=== PATIENT | male | born 1975 | race Caucasian/White ===

== ENCOUNTER 2017-07-27 10:55 | Emergency (ER) | payer OTHER ==
--- OUTSIDE RECORDS SUMMARY | 2017-07-27 10:57 | XMS REPORT ---
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
--- OUTSIDE RECORDS SUMMARY | 2017-07-27 10:57 | XMS REPORT ---
:1975 Author Organization [employer] Care Team Providers Name Role Phone Arsalan Tran Provider Role Unavailable Allergies, Adverse Reactions, Alerts Substance Reaction Event Type N.K.D.A. 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) Problem Tobacco use disorder F17.200 Active Problem Osteoarthritis of multiple joints M15.9 Active Assessment Condyloma acuminata A63.0 Active Assessment Migraine without aura and without G43.009 Active status migrainosus, not intractable Assessment Tobacco use disorder F17.200 Active Medications Medication Code System Code Instructions Start End Date Status Dosage Date Ibuprofen ND 25175406037 400 MG Orally Active 1 tablet Three times a day with food or milk as needed Remus [facility] 83281509124 5-325 MG Orally Active 1 tablet every 6 hrs as needed Results No Known Results Summary Purpose [employer] Submission
[2017-07-27] MEDS ORDERED: TETRACAINE HCL 0.5% 2ML OPTH ONE (13:14)
[2017-07-27 14:21] LABS: Absolute Monocytes 0.8 K/uL (0.1-1.3); Absolute Neutrophil 4.3 K/uL (1.8-8.0); Basophils % 0.6 % (0-1.3); Eosinophils % 1.8 % (0-4.4); Hematocrit 45.9 % (39.6-49.0); Lymphocytes % 27.9 % (15.3-44.8); MCH 28.9 pg (27.0-35.0); MCV 85.6 fL (80-100); MPV 11.8 fL (7.6-11.3); Monocytes % 10.4 % (3.3-12.3); RBC Red Blood Cell Count 5.37 M/uL (4.33-5.43)
[2017-07-27 14:28] LABS: Bicarbonate 31 mEq/L (21-31); Glucose Level 96 mg/dL (65-120); Lipase 32 U/L (22-51); Potassium 4.3 mEq/L (3.6-5.0); Sodium Level 137 mEq/L (135-145)
[2017-07-27 14:34] LABS: ALT/SGPT 19 IU/L (10-60); AST/SGOT 26 IU/L (10-42); Albumin 3.8 g/dL (3.2-5.5); Alkaline Phosphatase 79 IU/L (42-121); BUN Blood Urea Nitrogen 11 mg/dL (6-20); Bilirubin Direct 0.1 mg/dL (0-0.2); Bilirubin Total 0.6 mg/dL (0.3-1.2)
[2017-07-27 14:56] LABS: Blood Morphology Comment NOT SEEN (NOT SEEN); Platelet Estimate DECR; Urine White Blood Cell Casts OK
[2017-07-27] MEDS ORDERED: ONDANSETRON 4 MG (ODT) TAB ONE (16:31)
[2017-07-27] MEDS ORDERED: HYDROCODONE/APAP 5/325 MG TAB ONE ×2 (16:31→20:29)
--- NOTE | 2017-07-27 16:50 | RAD REPORT ---
EXAM DESCRIPTION: CT - Head Brain Wo Cont - 07/27/2017 4:32 pm CLINICAL HISTORY: Headache COMPARISON: December 2016 TECHNIQUE: Computed axial tomography of the head was obtained. IV contrast was not requested. All CT scans are performed using dose optimization technique as appropriate and may include automated exposure control or mA/KV adjustment according to patient size. FINDINGS: An intracranial bleed is not seen . The ventricles are normal in caliber. No extra-axial fluid collection is noted. Moderate mucoperiosteal thickening of the ethmoid sinus is present IMPRESSION: No acute intracranial abnormality is seen. If patient's symptoms persist MRI of the bra in would be recommended. Moderate chronic ethmoid sinusitis
--- NOTE | 2017-07-27 17:47 | EDPHYS ---
Physician Documentation [facility] Name: Vikas Flores Age: 41 yrs Sex: Male : 1975 Arrival Date: 07/27/2017 Time: 10:58 Bed 7 Private MD: Julian Tracy ED Physician Romulo Vuong HPI: 07/27 17:16 This 41 yrs old Male presents to ER via Ambulatory with complaints of gs Vomiting, Dizziness. 17:16 Onset: The symptoms/episode began/occurred gradually, 3 day(s) ago. Possible causes: gs thinks its his itp. The symptoms are aggravated by nothing. The symptoms are alleviated by nothing. 17:32 Associated signs and symptoms: Pertinent negatives: fever. Severity of symptoms: At gs their worst the symptoms were moderate in the emergency department the symptoms are unchanged. The patient has experienced similar episodes in the past, a few times. Historical: - Allergies: 11:15 No Known Allergies; sv - Home Meds: 11:15 None [Active]; sv - PMHx: 11:15 ITP; sv - PSHx: 11:15 rhinoplasty; Tonsillectomy; Adenoids; Appendectomy; sv - Immunization history:: Adult Immunizations up to date. - Social history:: Smoking status: Patient uses tobacco products, smokes one pack cigarettes per day. - Ebola Screening: : No symptoms or risks identified at this time. ROS: 17:32 Eyes: Positive for foreign body sensation, started 3 days ago, Negative for redness, gs swelling, vision loss. 17:32 All other systems are negative. Exam: 17:32 Head/Face: Normocephalic, atraumatic. ENT: Nares patent. No nasal discharge, no gs septal abnormalities noted. Tympanic membranes are normal and external auditory canals are clear. Oropharynx with no redness, swelling, or masses, exudates, or evidence of obstruction, uvula midline. Mucous membranes moist. Neck: Trachea midline, no thyromegaly or masses palpated, and no cervical lymphadenopathy. Supple, full range of motion without nuchal rigidity, or vertebral point tenderness. No Meningismus. Chest/axilla: Normal chest wall appearance and motion. Nontender with no deformity. No lesions are appreciated. Cardiovascular: Regular rate and rhythm with a normal S1 and S2. No gallops, murmurs, or rubs. Normal PMI, no JVD. No pulse deficits. Respiratory: Lungs have equal breath sounds bilaterally, clear to auscultation and percussion. No rales, rhonchi or wheezes noted. No increased work of breathing, no retractions or nasal flaring. Back: No spinal tenderness. No costovertebral tenderness. Full range of motion. Skin: Warm, dry with normal turgor. Normal color with no rashes, no lesions, and no evidence of cellulitis. MS/ Extremity: Pulses equal, no cyanosis. Neurovascular intact. Full, normal range of motion. Neuro: Awake and alert, GCS 15, oriented to person, place, time, and situation. Cranial nerves II-XII grossly intact. Motor strength 5/5 in all extremities. Sensory grossly intact. Cerebellar exam normal. Normal gait. 17:32 Constitutional: The patient appears alert, awake. 17:32 Eyes: Conjunctiva: normal, Corneas: foreign body, on the right, at 9 o'clock, a piece of metal. 17:32 Skin: no rash present. Vital Signs: 11:15 BP 120 / 82; Pulse 63; Resp 18; Temp 97.7; Pulse Ox 97% ; Weight 81.65 kg; Height 5 ft. sv 11 in. (180.34 cm); Pain 5/10; 19:48 BP 121 / 78; Pulse 73; Resp 18; Pulse Ox 98% on R/A; tl2 11:15 Body Mass Index 25.10 (81.65 kg, 180.34 cm) sv Procedures: 17:32 Foreign Body Removal: a piece of metal, from the right eye, cornea without use of slit gs lamp by needle, The patient tolerated the removal well, only partial removal. MDM: 13:03 Patient medically screened. 17:32 Data reviewed: vital signs, nurses notes. ED course: transfer after dr jhaveri and andrea want transferred. 07/27 13:10 Order name: Basic Metabolic Panel; Complete Time: 14:40 07/27 13:10 Order name: CBC with Diff; Complete Time: 15:01 07/27 13:10 Order name: Hepatic Function; Complete Time: 14:40 07/27 13:10 Order name: Lipase; Complete Time: 14:40 07/27 14:54 Order name: CBC Smear Scan; Complete Time: 15:01 EDKY 07/27 16:22 Order name: CT Head Brain wo Cont; Complete Time: 17:01 07/27 13:10 Order name: IV Saline Lock; Complete Time: 14:03 07/27 13:10 Order name: Labs collected and sent; Complete Time: 14:03 Administered Medications: 13:30 Drug: Tetracaine Drops 0.5 % 1 drops {Note: medication administered by } Route: Ophthalmic; Site: right eye; 16:30 Drug: Zofran 4 mg Route: PO; sg 21:06 Follow up: Response: No adverse reaction; Nausea is decreased tl2 16:30 Drug: Mathias 5 mg-325 mg 1 tabs Route: PO; sg 20:29 Drug: Mathias 5 mg-325 mg 1 tabs Route: PO; tl2 21:06 Follow up: Response: No adverse reaction; Medication administered at discharge. tl2 Disposition: 07/27/17 17:46 Transfer ordered to [facility]. Diagnosis is Immune thrombocytopenic purpura. - Reason for transfer: Higher level of care. - Accepting physician is steve. - Condition is Stable. - Problem is an acute exacerbation. - Symptoms are unchanged. Signatures: Dispatcher [employer] [facility] Shweta Alvarado RN RN Mike Oneil RN RN Anca López RN RN 2 Romulo Vuong MD MD Corrections: (The following items were deleted from the chart) 21:07 17:46 07/27/2017 17:46 Transfer ordered to [facility]. tl2 Diagnosis is Immune thrombocytopenic purpura. Reason for transfer: Higher level of care. Accepting physician is steve. Condition is Stable. Problem is an acute exacerbation. Symptoms are unchanged.
--- NOTE | 2017-07-27 17:47 | ER ---
Nurse's Notes [facility] Name: Vikas Flores Age: 41 yrs Sex: Male : 1975 Arrival Date: 07/27/2017 Time: 10:58 Bed 7 Private MD: Julian Tracy Diagnosis: Immune thrombocytopenic purpura Presentation: 07/27 11:14 Presenting complaint: Patient states: FB in left eye, vomiting and dizziness started sv Saturday, "I think it's my ITP messing with me.". Transition of care: patient was not received from another setting of care. Onset of symptoms was July 23, 2017. Care prior to arrival: None. 11:14 Method Of Arrival: Ambulatory sv 11:14 Acuity: FAUSTO 3 sv 21:05 Risk Assessment: Do you want to hurt yourself or someone else? Patient reports no tl2 desire to harm self or others. Initial Sepsis Screen: Does the patient meet any 2 criteria? No. Patient's initial sepsis screen is negative. Does the patient have a suspected source of infection? No. Patient's initial sepsis screen is negative. Historical: - Allergies: 11:15 No Known Allergies; sv - Home Meds: 11:15 None [Active]; sv - PMHx: 11:15 ITP; sv - PSHx: 11:15 rhinoplasty; Tonsillectomy; Adenoids; Appendectomy; sv - Immunization history:: Adult Immunizations up to date. - Social history:: Smoking status: Patient uses tobacco products, smokes one pack cigarettes per day. - Ebola Screening: : No symptoms or risks identified at this time. Screenin:50 Abuse screen: Denies threats or abuse. Denies injuries from another. Nutritional sg screening: No deficits noted. Tuberculosis screening: No symptoms or risk factors identified. Never had TB. Fall Risk None identified. Assessment: 12:10 General: Appears in no apparent distress. comfortable, well groomed, well developed, sg well nourished, Behavior is calm, cooperative, appropriate for age. Pain: Denies pain. Neuro: Level of Consciousness is awake, alert, obeys commands, Oriented to person, place, time, situation, Automobile Mechanic Motor are equal bilaterally Moves all extremities. Full function Gait is steady, Speech is normal, Facial symmetry appears normal, Reports dizziness, weakness. Cardiovascular: No deficits noted. Reports fatigue, lightheadedness, nausea, vomiting, Denies chest pain, shortness of breath, vomiting, Heart tones S1 S2 present Capillary refill is brisk in bilateral fingers Patient's skin is warm and dry. Chest pain is denied. Respiratory: No deficits noted. GI: Abdomen is flat, non-distended, Bowel sounds present X 4 quads. : No signs and/or symptoms were reported regarding the genitourinary system. EENT: Eyes are tearing on left eye a dark colored pinpoint sized kayla is noted on the sclera . Sclera/Cornea are reddened in left eye Reports pain in left eye. Derm: Skin is pink, warm \\T\\ dry. Musculoskeletal: No signs and/or symptoms reported regarding the musculoskeletal system. 19:40 Reassessment: attempted to call report, instructed to call back in 10 minutes. tl2 20:25 Reassessment: pt c/o pain, Dr. Parekh VO for another dose of [place] 5. Awaiting tl2 transport. 21:04 Reassessment: Patient appears in no apparent distress at this time. Patient and/or tl2 family updated on plan of care and expected duration. Pain level reassessed. Patient is alert, oriented x 3, equal unlabored respirations, skin warm/dry/pink. Pt stable and ready for transport. Vital Signs: 11:15 BP 120 / 82; Pulse 63; Resp 18; Temp 97.7; Pulse Ox 97% ; Weight 81.65 kg; Height 5 ft. sv 11 in. (180.34 cm); Pain 5/10; 19:48 BP 121 / 78; Pulse 73; Resp 18; Pulse Ox 98% on R/A; tl2 11:15 Body Mass Index 25.10 (81.65 kg, 180.34 cm) sv ED Course: 10:58 Patient arrived in ED. sb2 10:59 Julian Tracy MD is Private Physician. sb2 11:15 Triage completed. sv 11:16 Arm band placed on right wrist. Patient placed in waiting room, Patient notified of sv wait time. 11:45 Romulo Vuong MD is Attending Physician. gs 11:48 Mike Oneil, SANTOSH is Primary Nurse. sg 13:50 Initial lab(s) drawn, by me, sent to lab. Inserted saline lock: 20 gauge in right sg antecubital area, using aseptic technique. Blood collected. 16:14 transfer approval from receiving facility. sg 16:31 CT Head Brain wo Cont In Process Unspecified. EDMS 16:31 CT completed. Patient moved to HI via wheelchair. Patient moved back from HI. cw1 21:04 Anca López, RN is Primary Nurse. tl2 21:04 Patient has correct armband on for positive identification. Bed in low position. Call tl2 light in reach. Side rails up X 1. 21:04 No provider procedures requiring assistance completed. Patient transferred, IV remains tl2 in place. Administered Medications: 13:30 Drug: Tetracaine Drops 0.5 % 1 drops {Note: medication administered by .} Route: Ophthalmic; Site: right eye; 16:30 Drug: Zofran 4 mg Route: PO; sg 21:06 Follow up: Response: No adverse reaction; Nausea is decreased tl2 16:30 Drug: [place] 5 mg-325 mg 1 tabs Route: PO; sg 20:29 Drug: [place] 5 mg-325 mg 1 tabs Route: PO; tl2 21:06 Follow up: Response: No adverse reaction; Medication administered at discharge. tl2 Outcome: 17:46 ER care complete, transfer ordered by . 21:04 Transferred by ground EMS to [facility], Transfer form completed. tl2 21:04 Condition: stable 21:04 Discharge instructions given to patient, family, Instructed on the need for transfer. 21:07 Patient left the ED. tl2 Signatures: Dispatcher [employer] [facility] Shweta Alvarado RN RN sv Gay, Steven, RN RN sg Woodley, Crystal cw1 Anca López RN RN tl2 Romulo Vuong MD MD Sima Brambila sb2 Corrections: (The following items were deleted from the chart) 19:17 12:10 EENT: No signs and/or symptoms were reported regarding the EENT system. sg sg
[2017-07-27 21:14] VITALS: TEMP 97.7
[2017-07-27 21:15] VITALS: BP 121/78; O2SAT 98
== END 2017-07-27 21:07 | disposition short-term general hospital (02) ==
LOC: ER 10:55
PROC: 08C8XZZ Extirpation of Matter from Right Cornea, External Approach (ICD-10-PCS; principal; 2017-07-27)
DX: D69.3 Immune thrombocytopenic purpura (principal); T15.01XA Foreign body in cornea, right eye, initial encounter; F17.210 Nicotine dependence, cigarettes, uncomplicated
CPT/HCPCS: 36415; 70450; 80048; 80076; 83690; 85025; 99285

== ENCOUNTER 2018-11-07 12:08 | Emergency (ER) | payer OTHER ==
[2018-11-07 12:53] LABS: Absolute Lymphocytes (CBC) 2.9 K/uL (0.7-4.9); Basophils % 0.7 % (0-1.3); Hematocrit 46.7 % (39.6-49.0); Lymphocytes % 30.7 % (15.3-44.8); MPV 10.9 fL (7.6-11.3); RBC Red Blood Cell Count 5.44 M/uL (4.33-5.43)
[2018-11-07] MEDS ORDERED: NA CHLORIDE 0.9% 250 ML ONE (14:04)
[2018-11-07] MEDS ORDERED: ONDANSETRON 4 MG/2 ML VIAL ONE (15:35)
[2018-11-07] MEDS ORDERED: ACETAMINOPHEN 500 MG TAB ONE (15:39)
--- NOTE | 2018-11-07 16:35 | ER ---
Nurse's Notes [facility] Name: Vikas Flores Age: 43 yrs Sex: Male : 1975 Arrival Date: 11/07/2018 Time: 12:11 Bed 24 Private MD: Diagnosis: ITP Presentation: 11/07 12:12 Presenting complaint: Patient states: His doctor told him that his platelet count was aj1 low and he needed to come in for a transfusion. Transition of care: patient was not received from another setting of care. Onset of symptoms was November 07, 2018. Risk Assessment: Do you want to hurt yourself or someone else? Patient reports no desire to harm self or others. Initial Sepsis Screen: Does the patient meet any 2 criteria? No. Patient's initial sepsis screen is negative. Does the patient have a suspected source of infection? No. Patient's initial sepsis screen is negative. Care prior to arrival: None. 12:12 Method Of Arrival: Ambulatory aj1 12:12 Acuity: FAUSTO 3 aj1 Triage Assessment: 12:13 General: Appears in no apparent distress. comfortable, Behavior is calm, cooperative, aj1 appropriate for age. Pain: Denies pain. Historical: - Allergies: 12:13 No Known Allergies; aj1 - Home Meds: 12:13 None [Active]; aj1 - PMHx: 12:13 ITP; aj1 - PSHx: 12:13 Appendectomy; aj1 - Immunization history:: Flu vaccine is not up to date. - Social history:: Smoking status: Patient uses tobacco products, smokes two packs cigarettes per day. - Ebola Screening: : Patient denies travel to an Ebola-affected area in the 21 days before illness onset. Screenin:22 Abuse screen: Denies threats or abuse. Denies injuries from another. Nutritional mg2 screening: No deficits noted. Tuberculosis screening: No symptoms or risk factors identified. Fall Risk IV access (20 points). Assessment: 12:22 General: Appears in no apparent distress. comfortable, Behavior is calm, cooperative. mg2 Pain: Complains of pain in chest and abdomen Pain does not radiate. Pain currently is 2 out of 10 on a pain scale. Quality of pain is described as aching, Pain began gradually, Is intermittent, chronic. Neuro: Level of Consciousness is awake, alert, obeys commands, Oriented to person, place, time, situation. Cardiovascular: Capillary refill < 3 seconds Patient's skin is warm and dry. Respiratory: Airway is patent Respiratory effort is even, unlabored, Respiratory pattern is regular, symmetrical. GI: Reports lower abdominal pain, upper abdominal pain. : No signs and/or symptoms were reported regarding the genitourinary system. EENT: Reports. Derm: Skin is intact, is healthy with good turgor, Skin is pink, warm \T\ dry. normal. Musculoskeletal: Circulation, motion, and sensation intact. Capillary refill < 3 seconds. 13:39 Reassessment: provider spoke to the patient about the need for platelet transfusion. mg2 patient agreed. type and screen sent to the lab. 15:38 Reassessment: patient complained of n/v during the first 10 min of transfusion. mg2 transfusion stopped. ns started. zofran given as opal provider's order. patient monitored closely. provider ordered to just continue giving the platelet. 16:55 Reassessment: Patient appears in no apparent distress at this time. Patient and/or mg2 family updated on plan of care and expected duration. Pain level reassessed. Patient is alert, oriented x 3, equal unlabored respirations, skin warm/dry/pink. Vital Signs: 12:13 BP 121 / 75; Pulse 71; Resp 18; Temp 98.2; Pulse Ox 97% on R/A; Weight 81.65 kg (R); aj1 Height 5 ft. 10 in. (177.80 cm) (R); Pain 0/10; 13:30 BP 110 / 89; Pulse 69; Resp 18; Temp 98.4; Pulse Ox 100% on R/A; mg2 14:30 BP 112 / 70; Pulse 71; Resp 18; Pulse Ox 100% ; mg2 15:40 BP 118 / 92; Pulse 71; Resp 18; Pulse Ox 100% on R/A; mg2 16:20 BP 102 / 71; Pulse 70; Resp 18; Temp 98; Pulse Ox 100% on R/A; mg2 12:13 Body Mass Index 25.83 (81.65 kg, 177.80 cm) aj ED Course: 12:11 Patient arrived in ED. mr 12:13 Triage completed. aj1 12:13 Arm band placed on Patient placed in an exam room. aj1 12:16 Chandan Jovel, RN is Primary Nurse. mg2 12:18 Juan Ramon Arredondo PA is PHCP. jr8 12:18 Tres Deutsch MD is Attending Physician. jr8 12:23 Patient has correct armband on for positive identification. ekg monitor tech on. Pulse mg2 ox on. NIBP on. Door closed. Warm blanket given. 12:30 No provider procedures requiring assistance completed. Inserted saline lock: 20 gauge mg2 in right antecubital area, using aseptic technique. Blood collected. 16:58 IV discontinued, intact, bleeding controlled, No redness/swelling at site. Pressure mg2 dressing applied. Administered Medications: 15:47 Drug: Zofran 4 mg Route: IVP; Site: right antecubital; mg2 17:00 Follow up: Response: No adverse reaction; Marked relief of symptoms mg2 15:47 Drug: Tylenol 1000 mg Route: PO; mg2 17:00 Follow up: Response: No adverse reaction; Marked relief of symptoms mg2 Medication: 16:58 Blood products: Platelets X 1 unit given. blood unit number- [id number] See mg2 transfusion record. Outcome: 16:34 Discharge ordered by . jr8 16:59 Discharged to home ambulatory. mg2 16:59 Condition: good 16:59 Discharge instructions given to patient, Instructed on discharge instructions, follow up and referral plans. Demonstrated understanding of instructions, follow-up care. 17:00 Patient left the ED. mg2 Signatures: Lu Treadwell, RN RN aj1 Kiara Snyder mr Juan Ramon Arredondo PA PA jr8 Chandan Jovel RN RN mg2 Corrections: (The following items were deleted from the chart) 16:55 15:38 Reassessment: patient complained of n/v during the first 10 min of transfusion. mg2 transfusion stopped. ns started. zofran given as opal provider's order. patient monitored closely. mg2
--- NOTE | 2018-11-07 16:35 | EDPHYS ---
Physician Documentation [facility] Name: Vikas Flores Age: 43 yrs Sex: Male : 1975 Arrival Date: 11/07/2018 Time: 12:11 Bed 24 Private MD: ED Physician Tres Deutsch HPI: 11/07 12:31 This 43 yrs old Male presents to ER via Ambulatory with complaints of jr8 Abnormal Lab Results. 12:31 Onset: The symptoms/episode began/occurred today. The patient has experienced similar jr8 episodes in the past. The patient has been recently seen by a physician: Dr. deng. 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 Sent to ER for steroids, pt denies any new onset pain or bleeding. Historical: - Allergies: 12:13 No Known Allergies; aj1 - Home Meds: 12:13 None [Active]; aj1 - PMHx: 12:13 ITP; aj1 - PSHx: 12:13 Appendectomy; aj1 - Immunization history:: Flu vaccine is not up to date. - Social history:: Smoking status: Patient uses tobacco products, smokes two packs cigarettes per day. - Ebola Screening: : Patient denies travel to an Ebola-affected area in the 21 days before illness onset. ROS: 12:31 Constitutional: Negative for fever, chills, and weight loss, Eyes: Negative for injury, jr8 pain, redness, and discharge, ENT: Negative for injury, pain, and discharge, Neck: Negative for injury, pain, and swelling, Cardiovascular: Negative for chest pain, palpitations, and edema, Respiratory: Negative for shortness of breath, cough, wheezing, and pleuritic chest pain, Abdomen/GI: Negative for abdominal pain, nausea, vomiting, diarrhea, and constipation, MS/Extremity: Negative for injury and deformity, Neuro: Negative for headache, weakness, numbness, tingling, and seizure. Exam: 12:31 Constitutional: This is a well developed, well nourished patient who is awake, alert, jr8 and in no acute distress. Head/Face: Normocephalic, atraumatic. Eyes: Pupils equal round and reactive to light, extra-ocular motions intact. Lids and lashes normal. Conjunctiva and sclera are non-icteric and not injected. Cornea within normal limits. Periorbital areas with no swelling, redness, or edema. ENT: Nares patent. No nasal discharge, no septal abnormalities noted. Tympanic membranes are normal and external auditory canals are clear. Oropharynx with no redness, swelling, or masses, exudates, or evidence of obstruction, uvula midline. Mucous membranes moist. Neck: Trachea midline, no thyromegaly or masses palpated, and no cervical lymphadenopathy. Supple, full range of motion without nuchal rigidity, or vertebral point tenderness. No Meningismus. Chest/axilla: Normal chest wall appearance and motion. Nontender with no deformity. No lesions are appreciated. Cardiovascular: Regular rate and rhythm with a normal S1 and S2. No gallops, murmurs, or rubs. Normal PMI, no JVD. No pulse deficits. Respiratory: Lungs have equal breath sounds bilaterally, clear to auscultation and percussion. No rales, rhonchi or wheezes noted. No increased work of breathing, no retractions or nasal flaring. Abdomen/GI: Soft, non-tender, with normal bowel sounds. No distension or tympany. No guarding or rebound. No evidence of tenderness throughout. Back: No spinal tenderness. No costovertebral tenderness. Full range of motion. Skin: Warm, dry with normal turgor. Normal color with no rashes, no lesions, and no evidence of cellulitis. Neuro: Awake and alert, GCS 15, oriented to person, place, time, and situation. Cranial nerves II-XII grossly intact. Motor strength 5/5 in all extremities. Sensory grossly intact. Cerebellar exam normal. Normal gait. Vital Signs: 12:13 BP 121 / 75; Pulse 71; Resp 18; Temp 98.2; Pulse Ox 97% on R/A; Weight 81.65 kg (R); aj1 Height 5 ft. 10 in. (177.80 cm) (R); Pain 0/10; 13:30 BP 110 / 89; Pulse 69; Resp 18; Temp 98.4; Pulse Ox 100% on R/A; mg2 14:30 BP 112 / 70; Pulse 71; Resp 18; Pulse Ox 100% ; mg2 15:40 BP 118 / 92; Pulse 71; Resp 18; Pulse Ox 100% on R/A; mg2 16:20 BP 102 / 71; Pulse 70; Resp 18; Temp 98; Pulse Ox 100% on R/A; mg2 12:13 Body Mass Index 25.83 (81.65 kg, 177.80 cm) aj1 MDM: 12:41 Patient medically screened. jr8 16:29 Data reviewed: vital signs, nurses notes, lab test result(s), and as a result, I will jr8 discharge patient. Data interpreted: Pulse oximetry: on room air is 100 %. Interpretation: normal. Counseling: I had a detailed discussion with the patient and/or guardian regarding: the historical points, exam findings, and any diagnostic results supporting the discharge/admit diagnosis, lab results, the need for outpatient follow up, oncology, to return to the emergency department if symptoms worsen or persist or if there are any questions or concerns that arise at home. ED course: Spoke with Dr. Deng who wants patient to have 1 unit of platelets and then to be discharged home. Patient good with this plan. 11/07 12:28 Order name: CBC with Diff; Complete Time: 13:23 eb 11/07 13:27 Order name: TS [facility] 11/07 13:39 Order name: Platelets, Leukored Pheresis EDAK 11/07 15:06 Order name: ABO/RH no charge; Complete Time: 15:59 EDMS Administered Medications: 15:47 Drug: Zofran 4 mg Route: IVP; Site: right antecubital; mg2 17:00 Follow up: Response: No adverse reaction; Marked relief of symptoms mg2 15:47 Drug: Tylenol 1000 mg Route: PO; mg2 17:00 Follow up: Response: No adverse reaction; Marked relief of symptoms mg2 Disposition: 18:32 Co-signature as Attending Physician, Tres Deutsch MD. rn Disposition: 11/07/18 16:34 Discharged to Home. Impression: ITP. - Condition is Stable. - Discharge Instructions: Platelet Transfusion, Platelet Transfusion, Care After. - Medication Reconciliation Form, Thank You Letter form. - Follow up: Private Physician; When: 2 - 3 days; Reason: Recheck today's complaints, Continuance of care, Re-evaluation by your physician. - Problem is chronic. - Symptoms are unchanged. Signatures: Dispatcher [facility] Lu Treadwell RN RN aj1 Tres Deutsch MD MD rn Roszak, Josh, PA PA jr8 Gardose, Chandan, RN RN mg2 Corrections: (The following items were deleted from the chart) 13:30 13:28 TYPE AND SCREEN+BB.LAB.BRZ ordered. EDAK EDMS 13:30 13:28 ABO/RH TYPING+BB.LAB.BRZ ordered. EDAK EDAK 17:00 16:34 11/07/2018 16:34 Discharged to Home. Impression: ITP. Condition is Stable. Forms mg2 are Medication Reconciliation Form, Thank You Letter, Antibiotic Education, Prescription Opioid Use. Follow up: Private Physician; When: 2 - 3 days; Reason: Recheck today's complaints, Continuance of care, Re-evaluation by your physician. Problem is chronic. Symptoms are unchanged. jr8
== END 2018-11-07 17:00 | disposition home or self-care (01) ==
LOC: ER 12:08
PROC: 30233R1 Transfusion of Nonautologous Platelets into Peripheral Vein, Percutaneous Approach (ICD-10-PCS; principal; 2018-11-07)
DX: D69.3 Immune thrombocytopenic purpura (principal); F17.210 Nicotine dependence, cigarettes, uncomplicated
CPT/HCPCS: 85025; 36415; 86900; 86850; 86901; 36430 ×2; 96374; 99285; P9035; J2405

== ENCOUNTER 2018-12-24 09:44 | Day surgery (SDC) | payer OTHER ==
--- OUTSIDE RECORDS SUMMARY | 2018-12-24 09:47 | XMS REPORT ---
[...] Medications Results No Known Results Summary Purpose [employer] Submission
--- OUTSIDE RECORDS SUMMARY | 2018-12-24 09:47 | XMS REPORT ---
[...] End Date Status Dosage Date Ibuprofen ND [id number] 400 MG Orally Active 1 tablet Three times a day with food or milk as needed [employer] [facility] [id number] 5-325 MG Orally Active 1 tablet every 6 hrs as needed Results No Known Results Summary Purpose [employer] Submission
[2018-12-24] MEDS ORDERED: NA CHLORIDE 0.9% 500 ML ONE (10:12)
[2018-12-24 10:42] VITALS: BP 110/74; TEMP 98.4; O2SAT 94
[2018-12-24 10:45] VITALS: BMI 25.8
[2018-12-24 12:26] LABS: MPV 9.9 fL (7.6-11.3)
[2018-12-24 13:00] LABS: Platelet Estimate DECR
== END 2018-12-24 12:12 | disposition home or self-care (01) ==
LOC: DS 09:44
PROVIDERS: ATTEND Internal Medicine Medical Oncology
DX: D69.3 Immune thrombocytopenic purpura (principal)
CPT/HCPCS: 36415; 86900; 86850; 85049; 86901; 36430; P9035; J7040

== ENCOUNTER 2018-12-24 18:46 | Inpatient (IN) | payer OTHER ==
--- OUTSIDE RECORDS SUMMARY | 2018-12-24 18:47 | XMS REPORT ---
[...] Medications Results No Known Results Summary Purpose [employer] Submission
--- OUTSIDE RECORDS SUMMARY | 2018-12-24 18:47 | XMS REPORT ---
[...] End Date Status Dosage Date Ibuprofen ND [id number] 400 MG Orally Active 1 tablet Three times a day with food or milk as needed [employer] [facility] [id number] 5-325 MG Orally Active 1 tablet every 6 hrs as needed Results No Known Results Summary Purpose [employer] Submission
[2018-12-24] MEDS ORDERED: PANTOPRAZOLE 40 MG INJ ONE (21:12)
[2018-12-24] MEDS ORDERED: NA CHLORIDE 0.9% 1,000 ML ONE (21:12)
[2018-12-24 21:41] LABS: Absolute Lymphocytes (CBC) 2.1 K/uL (0.7-4.9); Basophils % 0.3 % (0-1.3); Hematocrit 46.1 % (39.6-49.0); Lymphocytes % 7.2 % (15.3-44.8); MPV 11.4 fL (7.6-11.3); RBC Red Blood Cell Count 5.27 M/uL (4.33-5.43)
[2018-12-24 21:50] LABS: Protime INR 1.06
[2018-12-24 21:52] LABS: ALT/SGPT 26 U/L (12-78); AST/SGOT 21 U/L (15-37); Albumin 3.8 g/dL (3.4-5.0); Alkaline Phosphatase 105 U/L (45-117); BUN Blood Urea Nitrogen 16 mg/dL (7-18); Bicarbonate 31 mmol/L (21-32); Bilirubin Direct 0.1 mg/dL (0-0.2); Bilirubin Total 0.3 mg/dL (0.2-1.0); Glucose Level 102 mg/dL (74-106); Magnesium 2.1 mg/dL (1.8-2.4); NT PRO-BNP 20 pg/mL (<125); Potassium 3.7 mmol/L (3.5-5.1); Protein, Total 7.4 g/dL (6.4-8.2); Sodium Level 136 mmol/L (136-145); Troponin (Emerg Dept Use Only) < 0.02 ng/mL (0.0-0.045)
[2018-12-24 22:56] LABS: Blood Morphology Comment NOT SEEN (NOT SEEN); Platelet Estimate DECR
--- NOTE | 2018-12-24 23:08 | ER ---
[facility] Name: Vikas Flores Age: 43 yrs Sex: Male : 1975 Arrival Date: 12/24/2018 Time: 18:49 Bed 18 Private MD: Diagnosis: Thrombocytopenia, unspecified-ITP;Encounter for screening for human papillomavirus (HPV)-EXTENSIVE RECTAL;Elevated white blood cell count Presentation: 12/24 19:31 Presenting complaint: Patient states: "I have ITP, I went to the senior software architect and my aj1 PLT was 11, I've been taking prednisone, and she said that my kidneys weren't working right, so I went to day surgery and they gave me an infusion of platelets. Dr. Deng want immunoglobulin, and she said that she could either do it over there or here, and when I told her that I had blood in my stool she told me to come over here.". Transition of care: patient was not received from another setting of care. Onset of symptoms was December 24, 2018. Risk Assessment: Do you want to hurt yourself or someone else? Patient reports no desire to harm self or others. Initial Sepsis Screen: Does the patient meet any 2 criteria? HR > 90 bpm. No. Patient's initial sepsis screen is negative. Does the patient have a suspected source of infection? No. Patient's initial sepsis screen is negative. Care prior to arrival: None. 19:31 Method Of Arrival: Ambulatory aj1 19:31 Acuity: FAUSTO 3 aj1 Triage Assessment: 19:37 General: Appears in no apparent distress. comfortable, Behavior is calm, cooperative, aj1 appropriate for age. Pain: Complains of pain in chest and abdomen Pain currently is 4 out of 10 on a pain scale. Neuro: Level of Consciousness is awake, alert, obeys commands, Oriented to person, place, time, situation. Neuro: Cardiovascular: Patient's skin is warm and dry. Respiratory: Airway is patent Respiratory effort is even, unlabored, Respiratory pattern is regular, symmetrical. GI: Reports lower abdominal pain, upper abdominal pain, bloody stool. Historical: - Allergies: 19:37 No Known Allergies; aj1 - Home Meds: 19:37 Prednisone Oral [Active]; suboxone [Active]; aj1 - PMHx: 19:37 ITP; Hepatitis; C; aj1 - PSHx: 19:37 Appendectomy; aj1 - Immunization history:: Flu vaccine is not up to date. - Social history:: Smoking status: Patient uses tobacco products, smokes two packs cigarettes per day. - Ebola Screening: : Patient denies travel to an Ebola-affected area in the 21 days before illness onset. Screenin:27 Abuse screen: Denies threats or abuse. Denies injuries from another. Nutritional rr5 screening: No deficits noted. Tuberculosis screening: No symptoms or risk factors identified. Fall Risk IV access (20 points). Total Argueta Fall Scale indicates No Risk (0-24 pts). Assessment: 20:00 General: Appears in no apparent distress. comfortable, Behavior is calm, cooperative, rr5 appropriate for age. 20:00 Pain: Complains of pain in abdomen Pain does not radiate. Pain currently is 4 out of 10 rr5 on a pain scale. Quality of pain is described as aching, Pain began gradually, Is intermittent. Neuro: Level of Consciousness is awake, alert, obeys commands, Oriented to person, place, time, situation, Appropriate for age. Cardiovascular: Capillary refill < 3 seconds Patient's skin is warm and dry. Respiratory: Airway is patent Respiratory effort is even, unlabored, Respiratory pattern is regular, symmetrical. GI: Reports lower abdominal pain, upper abdominal pain, bloody stool. : No signs and/or symptoms were reported regarding the genitourinary system. EENT: No signs and/or symptoms were reported regarding the EENT system. Derm: Skin is intact, Skin temperature is warm. Musculoskeletal: Circulation, motion, and sensation intact. Capillary refill < 3 seconds. 21:00 Reassessment: Patient appears in no apparent distress at this time. Patient is alert, rr5 oriented x 3, equal unlabored respirations, skin warm/dry/pink. no complaints made, awaiting for results. 22:00 Reassessment: Patient appears in no apparent distress at this time. No changes from rr5 previously documented assessment. Patient and/or family updated on plan of care and expected duration. Pain level reassessed. Reassessment: Patient appears in no apparent distress at this time. Patient is alert, oriented x 3, equal unlabored respirations, skin warm/dry/pink. 23:00 Reassessment: Patient appears in no apparent distress at this time. Patient is alert, rr5 oriented x 3, equal unlabored respirations, skin warm/dry/pink. watching TV vitally stable,breathing spontaneously at room air. 23:40 Reassessment: Patient appears in no apparent distress at this time. Patient is alert, rr5 oriented x 3, equal unlabored respirations, skin warm/dry/pink. send for CT scan assisted by ct staff. 12/25 00:59 Reassessment: Patient appears in no apparent distress at this time. Patient and/or rr5 family updated on plan of care and expected duration. Pain level reassessed. awaiting for room assignment. 02:00 Reassessment: Patient appears in no apparent distress at this time. Patient is alert, rr5 oriented x 3, equal unlabored respirations, skin warm/dry/pink. awake alert, breathing spontaneously at room air. no complaints made, vitally stable. Vital Signs: 12/24 19:37 BP 117 / 81; Pulse 106; Resp 20; Temp 97.3; Pulse Ox 96% on R/A; Weight 81.65 kg (R); aj1 Height 5 ft. 10 in. (177.80 cm) (R); Pain 4/10; 20:30 BP 139 / 93; Pulse 98; Resp 17; Pulse Ox 98% ; rr5 21:30 BP 123 / 80; Pulse 93; Resp 17; Temp 97.5; Pulse Ox 100% on R/A; rr5 22:30 BP 121 / 75; Pulse 96; Resp 16; Pulse Ox 98% ; rr5 23:30 BP 123 / 79; Pulse 90; Resp 15; Pulse Ox 99% ; rr5 12/25 00:30 BP 127 / 80; Pulse 77; Resp 16; Temp 98.3; Pulse Ox 99% ; rr5 01:30 BP 118 / 70; Pulse 85; Resp 17; Pulse Ox 98% ; rr5 02:00 BP 123 / 73; Pulse 75; Resp 16; Temp 97.8; Pulse Ox 98% ; rr5 12/24 19:37 Body Mass Index 25.83 (81.65 kg, 177.80 cm) aj1 ED Course: 12/24 18:49 Patient arrived in ED. mr 19:35 Triage completed. aj1 19:37 Arm band placed on Patient placed in an exam room. aj1 19:54 Niko Caputo, RN is Primary Nurse. rr5 20:22 Willian Parekh MD is Attending Physician. [facility] 21:25 Inserted saline lock: 18 gauge in right antecubital area, using aseptic technique. rr5 Blood collected. 21:27 Patient has correct armband on for positive identification. Placed in gown. Bed in low rr5 position. Call light in reach. Side rails up X2. monitoring analyst on. Pulse ox on. NIBP on. 21:33 XRAY Chest (1 view) In Process Unspecified. EDMS 21:53 Notified ED physician of a critical lab result(s). WBC 29.1 and plt 17. fc 23:06 Gilberto Hair is Hospitalizing Provider. [facility] 23:[address] via stretcher. 12/25 00:02 No provider procedures requiring assistance completed. rr5 00:11 CT completed. Patient tolerated procedure well. Patient moved back from CT. 00:20 CT Abd/Pelvis - IV Contrast Only In Process Unspecified. EDMS 02:30 Patient admitted, IV remains in place. intact, No redness/swelling at site. rr5 Administered Medications: 12/24 21:25 Drug: NS 0.9% 500 ml Route: IV; Rate: bolus; Site: right antecubital; rr5 22:00 Follow up: Response: No adverse reaction; IV Status: Completed infusion; IV Intake: rr5 500ml 21:26 Drug: ProTONIX 40 mg Route: IVP; Site: right antecubital; rr5 22:30 Follow up: Response: No adverse reaction rr5 22:00 Drug: NS 0.9% 1000 ml Route: IV; Rate: 125 ml/hr; Site: right antecubital; rr5 12/25 02:00 Follow up: Response: No adverse reaction; IV Status: Infusion continued upon admission; rr5 IV Intake: 500ml Intake: 12/24 22:00 IV: 500ml; Total: 500ml. rr5 12/25 02:00 IV: 500ml; Total: 1000ml. rr5 Outcome: 12/24 23:08 Decision to Hospitalize by Provider. [facility] 12/25 02:25 Admitted to Med/surg accompanied by tech, via stretcher, room 203, Report called to rr5 padilla Condition: stable 02:25 Instructed on the need for admit. rr5 02:42 Patient left the ED. rr5 Signatures: Dispatcher [employer] EDLu Patino RN RN ajWillian Colunga MD MD cha Rivera, Kiara mr Russ Adams Felicia, RN RN fc Roque, Raymond, RN RN rr5 Corrections: (The following items were deleted from the chart) 02:17 02:00 BP 123 / ???; Pulse 75bpm; Resp 16bpm; Pulse Ox 98%; Temp 97.8F; rr5 rr5
--- NOTE | 2018-12-24 23:09 | EDPHYS ---
Physician Documentation [facility] Name: Vikas Flores Age: 43 yrs Sex: Male : 1975 Arrival Date: 12/24/2018 Time: 18:49 Bed 18 Private MD: ED Physician Willian Parekh HPI: 12/24 21:05 This 43 yrs old Male presents to ER via Ambulatory with complaints of Bloody rudi Stools. 21:05 This 43 yrs old Male presents to ER via Ambulatory with complaints of Bloody rudi Stools. 21:05 The patient presents with abdominal pain in the upper abdomen, in the lower abdomen. rudi Onset: The symptoms/episode began/occurred 1 day(s) ago. The symptoms do not radiate. Associated signs and symptoms: none. The symptoms are described as achy. Severity of pain: At its worst the pain was mild in the emergency department the pain is unchanged. Historical: - Allergies: 19:37 No Known Allergies; aj1 - Home Meds: 19:37 Prednisone Oral [Active]; suboxone [Active]; aj1 - PMHx: 19:37 ITP; Hepatitis; C; aj1 - PSHx: 19:37 Appendectomy; aj1 - Immunization history:: Flu vaccine is not up to date. - Social history:: Smoking status: Patient uses tobacco products, smokes two packs cigarettes per day. - Ebola Screening: : Patient denies travel to an Ebola-affected area in the 21 days before illness onset. ROS: 21:06 Constitutional: Negative for fever, chills, and weight loss, Eyes: Negative for injury, rudi pain, redness, and discharge, ENT: Negative for injury, pain, and discharge, Neck: Negative for injury, pain, and swelling, Cardiovascular: Negative for chest pain, palpitations, and edema, Respiratory: Negative for shortness of breath, cough, wheezing, and pleuritic chest pain, Back: Negative for injury and pain, : Negative for injury, bleeding, discharge, and swelling, MS/Extremity: Negative for injury and deformity, Skin: Negative for injury, rash, and discoloration, Neuro: Negative for headache, weakness, numbness, tingling, and seizure, Psych: Negative for depression, anxiety, suicide ideation, homicidal ideation, and hallucinations, Allergy/Immunology: Negative for hives, rash, and allergies, Endocrine: Negative for neck swelling, polydipsia, polyuria, polyphagia, and marked weight changes, Hematologic/Lymphatic: Negative for swollen nodes, abnormal bleeding, and unusual bruising. 21:06 Abdomen/GI: Positive for abdominal cramps, rectal pain, rectal bleeding. Exam: 21:06 Constitutional: This is a well developed, well nourished patient who is awake, alert, rudi and in no acute distress. Head/Face: Normocephalic, atraumatic. Eyes: Pupils equal round and reactive to light, extra-ocular motions intact. Lids and lashes normal. Conjunctiva and sclera are non-icteric and not injected. Cornea within normal limits. Periorbital areas with no swelling, redness, or edema. ENT: Nares patent. No nasal discharge, no septal abnormalities noted. Tympanic membranes are normal and external auditory canals are clear. Oropharynx with no redness, swelling, or masses, exudates, or evidence of obstruction, uvula midline. Mucous membranes moist. Neck: Trachea midline, no thyromegaly or masses palpated, and no cervical lymphadenopathy. Supple, full range of motion without nuchal rigidity, or vertebral point tenderness. No Meningismus. Chest/axilla: Normal chest wall appearance and motion. Nontender with no deformity. No lesions are appreciated. Cardiovascular: Regular rate and rhythm with a normal S1 and S2. No gallops, murmurs, or rubs. Normal PMI, no JVD. No pulse deficits. Respiratory: Lungs have equal breath sounds bilaterally, clear to auscultation and percussion. No rales, rhonchi or wheezes noted. No increased work of breathing, no retractions or nasal flaring. Back: No spinal tenderness. No costovertebral tenderness. Full range of motion. Male : Normal genitalia with no discharge or lesions. Skin: Warm, dry with normal turgor. Normal color with no rashes, no lesions, and no evidence of cellulitis. MS/ Extremity: Pulses equal, no cyanosis. Neurovascular intact. Full, normal range of motion. Neuro: Awake and alert, GCS 15, oriented to person, place, time, and situation. Cranial nerves II-XII grossly intact. Motor strength 5/5 in all extremities. Sensory grossly intact. Cerebellar exam normal. Normal gait. Psych: Awake, alert, with orientation to person, place and time. Behavior, mood, and affect are within normal limits. 21:06 Abdomen/GI: Inspection: abdomen appears normal, Bowel sounds: normal, Palpation: abdomen is soft and non-tender, in all quadrants, Rectal exam: rectal tone poor, mass, swelling, tenderness, extensive hpv rectal, Liver: no appreciated palpable abnormalities, Hernia: not appreciated. Vital Signs: 19:37 BP 117 / 81; Pulse 106; Resp 20; Temp 97.3; Pulse Ox 96% on R/A; Weight 81.65 kg (R); aj1 Height 5 ft. 10 in. (177.80 cm) (R); Pain 4/10; 20:30 BP 139 / 93; Pulse 98; Resp 17; Pulse Ox 98% ; rr5 21:30 BP 123 / 80; Pulse 93; Resp 17; Temp 97.5; Pulse Ox 100% on R/A; rr5 22:30 BP 121 / 75; Pulse 96; Resp 16; Pulse Ox 98% ; rr5 23:30 BP 123 / 79; Pulse 90; Resp 15; Pulse Ox 99% ; rr5 12/25 00:30 BP 127 / 80; Pulse 77; Resp 16; Temp 98.3; Pulse Ox 99% ; rr5 01:30 BP 118 / 70; Pulse 85; Resp 17; Pulse Ox 98% ; rr5 02:00 BP 123 / 73; Pulse 75; Resp 16; Temp 97.8; Pulse Ox 98% ; rr5 12/24 19:37 Body Mass Index 25.83 (81.65 kg, 177.80 cm) [facility] MDM: 12/24 20:23 Patient medically screened. [facility] 21:08 Data reviewed: vital signs, nurses notes, lab test result(s), EKG, radiologic studies. [facility] 12/24 21:04 Order name: Basic Metabolic Panel; Complete Time: 23:04 [facility] 12/24 21:04 Order name: CBC with Diff; Complete Time: 23:04 [facility] 12/24 21:04 Order name: LFT's; Complete Time: 23:04 [facility] 12/24 21:04 Order name: Magnesium; Complete Time: 23:04 [facility] 12/24 21:04 Order name: NT PRO-BNP; Complete Time: 23:04 [facility] 12/24 21:04 Order name: PT-INR; Complete Time: 23:04 [facility] 12/24 21:04 Order name: Troponin (emerg Dept Use Only); Complete Time: 23:04 [facility] 12/24 21:04 Order name: XRAY Chest (1 view) [facility] 12/24 21:04 Order name: Type And Screen; Complete Time: 23:04 [facility] 12/24 21:56 Order name: Manual Differential; Complete Time: 23:04 [facility] 12/24 23:05 Order name: CT Abd/Pelvis - IV Contrast Only [facility] 12/24 21:04 Order name: EKG; Complete Time: 21: [facility] 12/24 21:04 Order name: Cardiac monitoring; Complete Time: 21: [facility] 12/24 21:04 Order name: EKG - Nurse/Tech; Complete Time: 23: [facility] 12/24 21:04 Order name: IV Saline Lock; Complete Time: : [facility] 12/24 21:04 Order name: Labs collected and sent; Complete Time: : [facility] 12/24 21:04 Order name: O2 Per Protocol; Complete Time: : [facility] 12/24 21:04 Order name: O2 Sat Monitoring; Complete Time: : [facility] Administered Medications: 21:25 Drug: NS 0.9% 500 ml Route: IV; Rate: bolus; Site: right antecubital; rr5 22:00 Follow up: Response: No adverse reaction; IV Status: Completed infusion; IV Intake: rr5 500ml 21:26 Drug: ProTONIX 40 mg Route: IVP; Site: right antecubital; rr5 22:30 Follow up: Response: No adverse reaction rr5 22:00 Drug: NS 0.9% 1000 ml Route: IV; Rate: 125 ml/hr; Site: right antecubital; rr5 12/25 02:00 Follow up: Response: No adverse reaction; IV Status: Infusion continued upon admission; rr5 IV Intake: 500ml Disposition: 12/24/18 23:08 Hospitalization ordered by Gilberto Hair for Inpatient Admission. Preliminary diagnosis are Thrombocytopenia, unspecified - ITP, Encounter for screening for human papillomavirus (HPV) - EXTENSIVE RECTAL, Elevated white blood cell count. - Bed requested for Telemetry/MedSurg (Inpatient). - Status is Inpatient Admission. rr5 - Condition is Fair. - Problem is new. - Symptoms have improved. UTI on Admission? No Signatures: Dispatcher [employer] EDLu Patino RN RN aj1 Carlee Dunlap RN RN dw Willian Parekh MD MD cha Roque, Raymond RN RN rr5 Corrections: (The following items were deleted from the chart) 02:04 12/24 23:08 Hospitalization Ordered by Gilberto Hair for Inpatient Admission. dw Preliminary diagnosis is Thrombocytopenia, unspecified - ITP; Encounter for screening for human papillomavirus (HPV) - EXTENSIVE RECTAL; Elevated white blood cell count. Bed requested for Telemetry/MedSurg (Inpatient). Status is Inpatient Admission. Condition is Fair. Problem is new. Symptoms have improved. UTI on Admission? No. rudi 12/25 02:42 02:04 12/24/2018 23:08 Hospitalization Ordered by Gilberto Hair for Inpatient rr5 Admission. Preliminary diagnosis is Thrombocytopenia, unspecified - ITP; Encounter for screening for human papillomavirus (HPV) - EXTENSIVE RECTAL; Elevated white blood cell count. Bed requested for Telemetry/MedSurg (Inpatient). Status is Inpatient Admission. Condition is Fair. Problem is new. Symptoms have improved. UTI on Admission? No. dw
--- NOTE | 2018-12-25 01:40 | P.HP ---
Certification for Inpatient Patient admitted to: Inpatient With expected LOS: >2 Midnights Practitioner: I am a practitioner with admitting privileges, knowledge of patient current condition, hospital course, and medical plan of care. Services: Services provided to patient in accordance with Admission requirements found in Title 42 Section 412.3 of the Code of Federal Regulations Patient History Date of Service: 12/25/18 Reason for admission: Low platelet count and rectal bleed History of Present Illness: 43-year-old gentleman with a history of idiopathic thrombocytopenia, history of HPV of anal/rectal area was referred to the emergency department due to low platelets and bright red blood per rectum. Patient saw his hematology oncologist Dr. Muñoz yesterday, received platelet transfusion for thrombocytopenia. His platelet level came up to 28. He has been on chronic prednisone therapy which has been deemed ineffective for his thrombocytopenia. Dr. Muñoz plan to start him on a IVIG. His platelet count dropped again to 17 after the transfusion. Patient was referred to the ED to be admitted for IVIG and also to be evaluated for GI bleed. He reports blood stained tissue paper after bowel movement, which he attributes to rectal HPV. Hemoglobin was 15 and white cell count elevated to 29 in the ED. Allergies No Known Drug Allergies Allergy (Verified 12/24/18 10:46) Unknown No Known Allergies Allergy (Uncoded 12/24/18 10:46) Unknown Home Medications: predniSONE [Prednisone*] 70 mg PO DAILY 01/22/17 - Past Medical/Surgical History Diabetic: No -: ITP -: HPV -: Rhinoplasty -: tonsillectomy -: adenoids removed -: appendectomy - Family History Father -: Cancer Notes: lung cancer - Social History Smoking Status: Current every day smoker Alcohol use: No CD- Drugs: Yes Caffeine use: Yes Review of Systems Other: General: No fever, no malaise, no unintentional weight loss. Eyes: No eye discharge, Respiratory: No cough, no shortness of breath. CVS: No chest pain, no palpitation, no lightheadedness. GI: No abdominal pain, no nausea no vomit, no constipation, no diarrhea. Genitourinary: No dysuria, no urinary frequency, no incontinence, no hematuria. Musculoskeletal: No joint pains, or joint swelling, no gait instability. Neurology: No headache, no asymmetric, weakness, no problem with swallowing. Except as documented, all other systems reviewed and negative. Physical Examination - Physical Exam General: Alert, In no apparent distress, Oriented x3 HEENT: Normocephalic, PERRLA, Mucous membr. moist/pink, Sclerae nonicteric Neck: Supple, JVD not distended, No Thyromegaly Respiratory: Clear to auscultation bilaterally, Normal air movement Cardiovascular: No edema, Normal pulses, Regular rate/rhythm, Normal S1 S2, No murmurs Capillary refill: <2 Seconds Gastrointestinal: Normal bowel sounds, Soft and benign, Non-distended, No tenderness Musculoskeletal: No swelling Integumentary: No rashes, No erythema Neurological: Normal speech, Normal strength at 5/5 x4 extr, Cranial nerves 3- 12 intact - Studies Laboratory Data (last 24 hrs) 12/24/18 21:25: PT 12.5, INR 1.06 12/24/18 21:25: WBC 29.1 H*, Hgb 15.3, Hct 46.1, Plt Count 17 L* D 12/24/18 21:25: Sodium 136, Potassium 3.7, BUN 16, Creatinine 0.96, Glucose 102 , Magnesium 2.1, Total Bilirubin 0.3, AST 21, ALT 26, Alkaline Phosphatase 105 Assessment and Plan - Problems (Diagnosis) (1) Chronic ITP (idiopathic thrombocytopenia) Onset Date: 12/27/16 Current Visit: No Status: Acute (2) Chronic use of steroids Current Visit: No Status: Chronic (3) COPD (chronic obstructive pulmonary disease) Current Visit: No Status: Acute Qualifiers: COPD type: COPD with acute exacerbation Qualified Code(s): J44.1 - Chronic obstructive pulmonary disease with (acute) exacerbation (4) Hepatitis C Current Visit: No Status: Chronic Qualifiers: Viral hepatitis chronicity: unspecified Hepatic coma status: without hepatic coma Qualified Code(s): B19.20 - Unspecified viral hepatitis C without hepatic coma (5) Tobacco abuse Onset Date: 12/27/16 Current Visit: No Status: Chronic - Plan Admit patient to [facility] Hematology consult Test Engine Operator plan to give IVIG in am. He needs GI evaluation for GI bleed. This can be done once his platelet count have improved with IVIG Continuing prednisone Monitor CBC Monitor for active bleeding and transfused with platelets as needed. Smoking counseling provided. - Advance Directives Does patient have a Living Will: No Does patient have a Durable POA for Healthcare: No
[2018-12-25] MEDS ORDERED: ALBUTEROL 2.5 MG/3 ML NEB SOL NEB PRN (02:33)
[2018-12-25] MEDS ORDERED: ACETAMINOPHEN 500 MG TAB PO PRN (02:33)
[2018-12-25] MEDS ORDERED: ONDANSETRON 4 MG/2 ML VIAL IV PRN (02:33)
[2018-12-25] MEDS ORDERED: POTASSIUM CL SA 10 MEQ TAB PO ONE ×2 (03:00→09:00)
[2018-12-25] MEDS ORDERED: TRAZODONE 50 MG TABLET PO ONE (03:12)
[2018-12-25] MEDS: NA CHLORIDE 0.9% 1,000 ML IV SCH ×2 (03:13→14:15)
[2018-12-25 03:40] VITALS: BMI 26.1
[2018-12-25] MEDS ORDERED: INFLUENZA VACCINE (for 3y+) 0.5 ML DOSE IMVAC ONE (06:00)
[2018-12-25 06:24] LABS: BUN Blood Urea Nitrogen 13 mg/dL (7-18); Bicarbonate 30 mmol/L (21-32); Glucose Level 86 mg/dL (74-106); Potassium 3.6 mmol/L (3.5-5.1); Sodium Level 141 mmol/L (136-145)
--- NOTE | 2018-12-25 07:58 | RAD REPORT ---
EXAM DESCRIPTION: Carlitos Single View12/24/2018 9:33 pm CLINICAL HISTORY: Chest pain COMPARISON: 2017 FINDINGS: The lungs appear clear of acute infiltrate. The heart is normal size IMPRESSION: No acute abnormalities displayed
--- NOTE | 2018-12-25 08:17 | EKG ---
Test Date: 2018-12-24 Test Time: 22:44:33 Electronic Publishing Specialist: ILIA MEASUREMENT RESULTS: Intervals: Rate: 91 NV: 226 QRSD: 94 QT: 368 QTc: 452 [place]: P: 62 NV: 226 QRS: 45 T: 6 INTERPRETIVE STATEMENTS: Sinus rhythm with 1st degree AV block Nonspecific T wave abnormality Abnormal ECG Compared to ECG 01/21/2017 19:22:12 First degree AV block now present T-wave abnormality now present Atrial abnormality no longer present Electronically Signed On 12-25-18 08:15:47 STRIP MACHINE OPERATOR by Adrian Gomez
[2018-12-25] MEDS ORDERED: predniSONE 20 MG TAB PO SCH (09:00)
[2018-12-25 09:15] VITALS: O2SAT 94
[2018-12-25 09:27] LABS: Hematocrit 44.1 % (39.6-49.0); Lymphocytes % 32.7 % (15.3-44.8); MPV 12.6 fL (7.6-11.3); RBC Red Blood Cell Count 5.05 M/uL (4.33-5.43)
--- NOTE | 2018-12-25 12:14 | RAD REPORT ---
EXAM DESCRIPTION: CT - Abdomen Pelvis W Contrast - 12/25/2018 4:52 am CLINICAL HISTORY: ABD PAIN COMPARISON: None. TECHNIQUE: CT ABDOMEN PELVIS WITH IV CONTRAST on 12/24/2018 11:05 PM BRANCH OFFICER This exam was performed according to our departmental dose-optimization program, which includes autom ated exposure control, adjustment of the mA and/or kV according to patient size and/or use of iterati ve reconstruction technique. FINDINGS: Lower lungs are clear. Abdomen: There are several subcentimeter hypodense lesions in the liver. These are too small to amanda cterize but likely represent cysts. There is no biliary dilatation. Gallbladder is normal in appearan ce. The pancreas and spleen are normal in appearance. The adrenal glands and kidneys are unremarkable . Abdominal aorta is normal in course and caliber without aneurysm. There is no free air. There is no r etroperitoneal adenopathy. Pelvis: There is no bowel obstruction. Urinary bladder is unremarkable. There is no free fluid. Appen melody is normal. Skeleton: There are no acute osseous findings. No suspicious bony lesions. IMPRESSION: No acute inflammatory process. No renal or ureteral calculi. Electronically signed by: Sukhdev Huntley MD 12/25/2018 12:20 AM BRANCH OFFICER Due to temporary technical issues with the PACS/Fluency reporting system, reports are being signed by the in house radiologist as a courtesy to ensure prompt reporting. The interpreting radiologist is f ully responsible for the content of the report.
[2018-12-25 12:39] LABS: Blood Morphology Comment NOT SEEN (NOT SEEN); Platelet Estimate DECR
[2018-12-25] MEDS: dexAMETHasone 4 MG TAB PO SCH (12:59)
[2018-12-25] MEDS ORDERED: DIPHENHYDRAMINE 50 MG/ML VIAL IV ONE (14:30)
[2018-12-25] MEDS ORDERED: [UNRECOGNIZED DRUG - OTHER] IV ONE (15:00)
[2018-12-25] MEDS ORDERED: MALTOSE IV ONE (15:00)
[2018-12-25] MEDS: PANTOPRAZOLE 40MG TABLET PO SCH (16:54)
--- NOTE | 2018-12-25 17:22 | PN ---
Date of Progress Note: 12/25/2018 Subjective: Patient seen and examined. Chart reviewed and case discussed with RN and Dr. Ramirez as well as Dr. Deng. Patient denies any specific complaints. Medications: List reviewed. Physical Examination: Vital Signs: Temperature 98.1, heart rate 72, blood pressure 106/61, respirations 17, O2 95% on room air. General: Awake alert oriented x3, in some mild distress. CV: S1, S2. Regular rate and rhythm. Peripheral pulses present. Respiratory: Moving air well bilaterally. No wheezing or stridor. No use of accessory muscles. Gastrointestinal: Abdomen is soft, nontender, nondistended. Positive bowel sounds. Extremities: No clubbing, cyanosis, or edema. Neurologic: Nonfocal. Laboratory Data: WBC 12.3, H and H 14.7 and 44.1, platelets 30, neutrophils 56%. Assessment: 43-year-old male with; 1.Acute on chronic ITP. Patient is on Decadron. We will switch from prednisone. I spoke with Dr. Ramirez and Dr. Deng who have been following the patient in the past. Patient will also receive I VIG 1 g/kg for 2 days. Goal is for platelets to be above 20. 2.Chronic obstructive pulmonary disease, chronic bronchitis, stable. We will continue with albutero l p.r.n. 3.Nicotine dependence with cigarette smoking. Counseled. Uncomplicated. 4.Hepatitis C without hepatic coma. Patient needs to follow up with GI for biopsy and treatment for hepatitis C. 5.Chronic use of steroids. Patient does have elevated white blood cell count, likely steroid induce d. Plan: Likely discharge in the next 24 to 48 hours depending on clinical improvement in platelets as well as IVIG. SA/MODL Voice ID: [id number] Report ID: [id number]
[2018-12-26] MEDS: NA CHLORIDE 0.9% 1,000 ML IV SCH (04:39)
[2018-12-26 05:36] LABS: Protime INR 1.11
[2018-12-26 05:44] LABS: Absolute Lymphocytes (CBC) 0.8 K/uL (0.7-4.9); Basophils % 0.2 % (0-1.3); Hematocrit 41.1 % (39.6-49.0); Lymphocytes % 5.1 % (15.3-44.8); MPV 11.9 fL (7.6-11.3); RBC Red Blood Cell Count 4.67 M/uL (4.33-5.43)
[2018-12-26 05:48] LABS: BUN Blood Urea Nitrogen 9 mg/dL (7-18); Bicarbonate 28 mmol/L (21-32); Glucose Level 123 mg/dL (74-106); Magnesium 2.3 mg/dL (1.8-2.4); Phosphorus 2.9 mg/dL (2.5-4.9); Sodium Level 140 mmol/L (136-145)
[2018-12-26] MEDS: PANTOPRAZOLE 40MG TABLET PO SCH (06:32)
[2018-12-26 06:51] LABS: Blood Morphology Comment NOT SEEN (NOT SEEN); Platelet Estimate DECR; Platelets, Giant FEW; Urine White Blood Cell Casts OK
[2018-12-26 08:42] VITALS: TEMP 97.7
[2018-12-26] MEDS: dexAMETHasone 4 MG TAB PO SCH (10:31)
[2018-12-26 13:04] VITALS: BP 146/82
--- NOTE | 2018-12-27 04:30 | DS ---
Date of Discharge: 12/26/2018 Consultants: Dr. Ramirez and Dr. Bejarano with Hematology/Oncology. Admitting Diagnoses: 1.Idiopathic thrombocytopenic purpura. 2.Chronic use of steroids. 3.Chronic obstructive pulmonary disease. 4.Hepatitis C without coma. 5.Nicotine dependence with cigarette smoking, counseled. Discharge Diagnoses: 1.Acute on chronic idiopathic thrombocytopenic purpura, improved with IVIG and Decadron. 2.Chronic obstructive pulmonary disease, chronic bronchitis, stable. 3.Hepatitis C without hepatic coma. 4.Chronic use of steroids. 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 6.Nicotine dependence with cigarette smoking, counseled. Hospital Course: Patient is a 43-year-old male with past medical history of ITP, steroid dependent, HPV, hepatitis C, who comes in due to low platelet count and rectal bleed. Patient was admitted for acute treatment. He was started on IVIG and pulse dose Decadron. He responded well. His platelet c ount increased from 17-30 and then to 51. The IVIG was on back order. He was only able to receive 1 dose. Patient was counseled regarding his smoking as well as following up with GI for his hepatitis . Patient has been counseled multiple times by his record cutter, has not followed up in the past. Shilpi loredo needs to have workup and be treated for his hepatitis C, which will help his platelet count. Juan Francisco nt understands the importance of close followup. Did speak with Dr. Denis, patient's GI doctor, sin augustine, he had a family emergency, will be going out of town. However, they recommended for ou tpatient followup for EGD and further workup for his hepatitis C in terms of serology genotyping and treatment. HIV screen was also done. Previous HIV screen in 2017, was negative. Patient has multip le sexually transmitted disease including HPV and hepatitis. He states the is aware. They are currently not sexually active due to his hep C and HPV. He understands that HPV causes cancer. He n eeds to have this evaluated by surgeon and once his platelet counts are acceptable and have him resec ezequiel. Overall, patient did well. He responded well to Decadron and IVIG. He was then cleared for tashi ortiz from Hematology standpoint. Followup: He is to follow up with his primary care physician in 2-3 days follow up with GI, Dr. Sanchez brown in 1-2 weeks' follow up with record cutter Dr. Ramirez in 1 week for lab draw. Return to ER f or worsening condition. Diet: Regular. Activity: As tolerated. Medications: As per medication reconciliation list. Physical Examination: General: Awake, alert, and oriented x3. No acute distress. CV: S1, S2. Respiratory: Moving air well bilaterally. Abdomen: Abdomen is soft, nontender, nondistended. Positive bowel sounds. Extremities: No clubbing, cyanosis, or edema. Neurologic: Nonfocal. Total time spent discharging the patient was 32 minutes. /MOIRA Voice ID: [id number] Report ID: [id number]
[2018-12-29 11:51] LABS: HIV AG/AB 4TH GEN Non-reactive (Non-reactive)
== END 2018-12-26 16:45 | disposition home or self-care (01) | DRG 813 ==
LOC: ER 18:46 → 2ND 12-25 01:45
PROVIDERS: ADMIT Internal Medicine; ATTEND Internal Medicine
DX: D69.3 Immune thrombocytopenic purpura (principal); J44.9 Chronic obstructive pulmonary disease, unspecified; B18.2 Chronic viral hepatitis C; Z79.52 Long term (current) use of systemic steroids; A63.0 Anogenital (venereal) warts; F17.210 Nicotine dependence, cigarettes, uncomplicated
CPT/HCPCS: 36415; 71045; 74177; 80048; 80076; 83735; 83880; 84100; 84443; 84484; 85025; 85610; 86850; 86900; 86901; 87389; 93005; 94760; 96361; 96374; 99285; C9113; J1200; J1568; J7030; J7512; J8540; Q9967

== ENCOUNTER 2019-01-15 09:24 | Inpatient (IN) | payer OTHER ==
--- OUTSIDE RECORDS SUMMARY | 2019-01-15 09:27 | XMS REPORT ---
:1975 [facility] Address [address] [place] [address] [address] Care Team Providers Name Role Phone Unavailable Unavailable Unavailable Payers Payer Name Policy Type Policy Number Effective Date Expiration Date Problems This patient has no known problems. Allergies, Adverse Reactions, Alerts This patient has no known allergies or adverse reactions. Medications This patient has no known medications.
--- OUTSIDE RECORDS SUMMARY | 2019-01-15 09:27 | XMS REPORT ---
[...] End Date Status Dosage Date Ibuprofen ND [id number] 400 MG Orally Active 1 tablet Three times a day with food or milk as needed [facility] [id number] 5-325 MG Orally Active 1 tablet every 6 hrs as needed Results No Known Results Summary Purpose [employer] Submission
--- OUTSIDE RECORDS SUMMARY | 2019-01-15 09:27 | XMS REPORT ---
[...] Medications Results No Known Results Summary Purpose [employer] Submission
[2019-01-15] MEDS ORDERED: LEVALBUTEROL 1.25 MG/3 ML NEB ONE (09:47)
[2019-01-15] MEDS ORDERED: METHYLPREDNISOLONE 125 MG INJ ONE (09:47)
[2019-01-15] MEDS ORDERED: NA CHLORIDE 0.9% 1,000 ML ONE (09:56)
[2019-01-15] MEDS ORDERED: CEFTRIAXONE/SWI 1gm 1 GM/10 ML SYR ONE (10:15)
[2019-01-15] MEDS ORDERED: Levofloxacin 750mg IV 750 MG/150 ML BAG IV ONE (10:15)
[2019-01-15 10:24] LABS: BUN Blood Urea Nitrogen 15 mg/dL (7-18); Bicarbonate 32 mmol/L (21-32); Creatine Phosphokinase 56 U/L (39-308); Glucose Level 119 mg/dL (74-106); Potassium 4.3 mmol/L (3.5-5.1); Sodium Level 139 mmol/L (136-145); Troponin (Emerg Dept Use Only) < 0.02 ng/mL (0.0-0.045)
[2019-01-15] MEDS ORDERED: NA CHLORIDE 0.9% 2,000 ML ONE (10:31)
--- NOTE | 2019-01-15 10:35 | RAD REPORT ---
EXAM DESCRIPTION: Carlitos Single View01/15/2019 9:59 am CLINICAL HISTORY: cough COMPARISON: 2017 FINDINGS: Patchy bilateral pulmonary opacities are present left greater than right The heart is normal size IMPRESSION: Patchy bilateral pulmonary opacities left greater than right likely pneumonia
[2019-01-15 10:40] LABS: Absolute Lymphocytes (CBC) 1.3 K/uL (0.7-4.9); Basophils % 0.4 % (0-1.3); Hematocrit 43.9 % (39.6-49.0); Lymphocytes % 9.9 % (15.3-44.8); MPV 12.4 fL (7.6-11.3); RBC Red Blood Cell Count 5.09 M/uL (4.33-5.43)
--- NOTE | 2019-01-15 10:50 | EDPHYS ---
Physician Documentation [facility] Name: Vikas Flores Age: 43 yrs Sex: Male : 1975 Arrival Date: 01/15/2019 Time: 09:26 Bed 4 Private MD: Julian Tracy; Salome Perez ED Physician Tres Deutsch HPI: 01/15 09:35 This 43 yrs old Male presents to ER via Unassigned with complaints of rn Shortness Of Breath. 09:35 The patient has shortness of breath at rest, with light activity. Onset: The rn symptoms/episode began/occurred 3 day(s) ago. Duration: The symptoms are continuous. The patient's shortness of breath is aggravated by exertion, light activity. Severity of symptoms: At their worst the symptoms were moderate in the emergency department the symptoms are unchanged. The patient has not experienced similar symptoms in the past. The patient has not recently seen a physician. Reports fever/cough/dyspnea, with oxygen down to 82% with ambulation, + smoker, feels worse today. Been taking breathing treatments at home with only a little help. + pleuritic left sided pain. No vomiting/diarrhea. + known ITP.. Historical: - Allergies: 09:36 No Known Drug Allergies; ph - Home Meds: 09:36 Prednisone Oral [Active]; Suboxone [Active]; ph - PMHx: 09:36 Hepatitis; C; ITP; ph - PSHx: 09:36 Appendectomy; ph - Immunization history:: Adult Immunizations unknown. - Ebola Screening: : No symptoms or risks identified at this time. - Family history:: not pertinent. - Hospitalizations: : No recent hospitalization is reported. ROS: 09:35 Constitutional: + fever and chills Eyes: Negative for injury, pain, redness, and assistant city attorney, ENT: Negative for injury, pain, and discharge, Neck: Negative for injury, and swelling, Cardiovascular: + left sided chest pain Respiratory: + sob and cough, + left pleuritic chest pain Abdomen/GI: Negative for abdominal pain, nausea, vomiting, diarrhea, and constipation, MS/Extremity: Negative for injury and deformity, Skin: Negative for injury, rash, and discoloration, Neuro: + generalized weakness Exam: 09:35 Constitutional: This is a well developed, well nourished patient who is awake, alert, rn + moderate respiratory distress Head/Face: Normocephalic, atraumatic. Eyes: Pupils equal round and reactive to light, extra-ocular motions intact. Lids and lashes normal. Conjunctiva and sclera are non-icteric and not injected. Cornea within normal limits. Periorbital areas with no swelling, redness, or edema. ENT: dry MM without stridor Neck: Trachea midline, no thyromegaly or masses palpated, and no cervical lymphadenopathy. Supple, full range of motion without nuchal rigidity, or vertebral point tenderness. No Meningismus. Cardiovascular: tachycardic, regular, no murmur Respiratory: + moderate tachypnea with coarse bilateral breath sounds, worse on left base. + faint exp wheezing, speaking 3 word sentences Abdomen/GI: soft, non-tender MS/ Extremity: Pulses equal, no cyanosis. Neurovascular intact. Full, normal range of motion. Equal circumference. Neuro: Awake and alert, GCS 15 Vital Signs: 09:35 BP 131 / 67; Pulse 103; Resp 28; Temp 98.5(O); Pulse Ox 87% on R/A; Weight 81.65 kg; ph Height 5 ft. 10 in. (177.80 cm); 10:40 BP 122 / 73; Pulse 104; Resp 23; Pulse Ox 96% on 2 lpm NC; ph 11:21 BP 117 / 77; Pulse 101; Resp 22; Pulse Ox 93% on 2 lpm NC; ph 12:06 BP 110 / 76; Pulse 97; Resp 20; Temp 98.5(O); Pulse Ox 95% on 2 lpm NC; ph 09:35 Body Mass Index 25.83 (81.65 kg, 177.80 cm) ph MDM: 09:29 Patient medically screened. rn 10:46 Differential diagnosis: Bronchitis Chronic Obstructive Pulmonary Disease Myocardial rn Infarction pneumonia, Pneumothorax pulmonary edema, reactive airway disease, Sepsis. Data reviewed: vital signs, nurses notes, lab test result(s), EKG, radiologic studies, plain films, and as a result, I will admit patient. Test interpretation: by ED physician or midlevel provider: CXR with bilateral opacities indicating pneumonia. Counseling: I had a detailed discussion with the patient and/or guardian regarding: the historical points, exam findings, and any diagnostic results supporting the discharge/admit diagnosis, lab results, radiology results, the need for further work-up and treatment in the hospital. Response to treatment: the patient's symptoms have mildly improved after treatment, and as a result, I will admit patient. Admission orders: after a detailed discussion of the patient's condition and case, the admit orders are written by me. ED course: Admitted to Dr. Morgan for bilateral pneumonia. . 01/15 09:35 Order name: Basic Metabolic Panel; Complete Time: 10:44 rn 01/15 09:35 Order name: Blood Culture Adult (2) rn 01/15 09:35 Order name: CBC with Diff rn 01/15 09:35 Order name: CPK; Complete Time: 10:44 rn 01/15 09:35 Order name: Lactate; Complete Time: 10:44 rn 01/15 09:35 Order name: Procalcitonin; Complete Time: 10:44 rn 01/15 09:35 Order name: Troponin (emerg Dept Use Only); Complete Time: 10:44 rn 01/15 09:35 Order name: Flu; Complete Time: 10:44 rn 01/15 10:39 Order name: Sputum Culture ph 01/15 11:49 Order name: CBC with Automated Diff EDMS 01/15 11:49 Order name: CBC with Automated Diff EDMS 01/15 11:49 Order name: Comprehensive Metabolic Panel EDKY 01/15 11:49 Order name: Comprehensive Metabolic Panel EDMS 01/15 11:49 Order name: Lactate EDMS 01/15 09:35 Order name: Chest Single View XRAY; Complete Time: 10:44 rn 01/15 11:21 Order name: EKG Electrocardiogram EDMS 01/15 11:49 Order name: Lactate EDMS 01/15 11:49 Order name: Lipid Profile EDMS 01/15 11:49 Order name: Lipid Profile EDMS 01/15 11:49 Order name: Magnesium EDMS 01/15 11:49 Order name: Magnesium EDMS 01/15 11:49 Order name: Procalcitonin EDMS 01/15 11:49 Order name: Procalcitonin EDMS 01/15 11:49 Order name: Phosphorus EDMS 01/15 11:49 Order name: Phosphorus EDMS 01/15 09:35 Order name: Accucheck; Complete Time: 09:46 rn 01/15 09:35 Order name: Cardiac monitoring; Complete Time: 09:41 rn 01/15 09:35 Order name: EKG - Nurse/Tech; Complete Time: 09:46 rn 01/15 09:35 Order name: IV Saline Lock - Large Bore; Complete Time: 09:46 rn 01/15 09:35 Order name: Labs collected and sent; Complete Time: 09:46 rn 01/15 09:35 Order name: O2 Per Protocol; Complete Time: 09:41 rn 01/15 09:35 Order name: O2 Sat Monitoring; Complete Time: 09:41 rn 01/15 11:49 Order name: Regular EDMS Administered Medications: 09:53 Drug: SOLU-Medrol 125 mg Route: IVP; Site: right antecubital; ph 10:39 Follow up: Response: No adverse reaction ph 09:53 Drug: Xopenex (3) 1.25 mg Route: Inhalation; ph 10:40 Follow up: Response: No adverse reaction ph 09:56 Drug: NS 0.9% (30 ml/kg) 30 ml/kg Route: IV; Rate: bolus; Site: right antecubital; ph 12:07 Follow up: Response: No adverse reaction; IV Status: Completed infusion; IV Intake: ph 2500ml 10:20 Drug: Rocephin - (cefTRIAXone) 1 grams Route: IVPB; Infused Over: 30 mins; Site: right ph antecubital; 10:40 Follow up: Response: No adverse reaction; IV Status: Completed infusion ph 10:35 Drug: LevaQUIN 750 mg Volume: 150 ml; Route: IVPB; Infused Over: 90 mins; Site: right ph antecubital; 12:07 Follow up: Response: No adverse reaction; IV Status: Completed infusion ph Disposition: 01/15/19 10:49 Hospitalization ordered by Carolyn Morgan for Inpatient Admission. Preliminary diagnosis are Bilateral Pneumonia, Hypoxemia, Sepsis, unspecified organism. - Bed requested for Telemetry/MedSurg (Inpatient). - Status is Inpatient Admission. ph - Condition is Stable. - Problem is new. - Symptoms have improved. UTI on Admission? No Signatures: Dispatcher [employer] EDCarlee Luque RN RN dw Nieto, Roman, MD MD rn Hall, Patricia, RN RN ph Corrections: (The following items were deleted from the chart) 10:49 10:49 Hospitalization Ordered by Carolyn Morgan MD for Inpatient Admission. Preliminary rn diagnosis is Bilateral Pneumonia; Hypoxemia. Bed requested for Telemetry/MedSurg (Inpatient). Status is Inpatient Admission. Condition is Stable. Problem is new. Symptoms have improved. UTI on Admission? No. rn 12:04 10:49 01/15/2019 10:49 Hospitalization Ordered by Carolyn Morgan MD for Inpatient dw Admission. Preliminary diagnosis is Bilateral Pneumonia; Hypoxemia; Sepsis, unspecified organism. Bed requested for Telemetry/MedSurg (Inpatient). Status is Inpatient Admission. Condition is Stable. Problem is new. Symptoms have improved. UTI on Admission? No. rn 12:52 12:04 01/15/2019 10:49 Hospitalization Ordered by Carolyn Morgan MD for Inpatient ph Admission. Preliminary diagnosis is Bilateral Pneumonia; Hypoxemia; Sepsis, unspecified organism. Bed requested for Telemetry/MedSurg (Inpatient). Status is Inpatient Admission. Condition is Stable. Problem is new. Symptoms have improved. UTI on Admission? No. dw
--- NOTE | 2019-01-15 10:50 | ER ---
Nurse's Notes [facility] Name: Vikas Flores Age: 43 yrs Sex: Male : 1975 Arrival Date: 01/15/2019 Time: 09:26 Bed 4 Private MD: Julian Tracy; Salome Perez Diagnosis: Bilateral Pneumonia;Hypoxemia;Sepsis, unspecified organism Presentation: 01/15 09:34 Acuity: FAUSTO 2 ss 09:37 Presenting complaint: states: Productive cough, SOB, chills x 3 days, states that ph SPO2 decreases to 83% when ambulating. Transition of care: patient was not received from another setting of care. Onset of symptoms was January 15, 2019. Risk Assessment: Do you want to hurt yourself or someone else? Patient reports no desire to harm self or others. Initial Sepsis Screen: Does the patient meet any 2 criteria? RR > 20 per min. HR > 90 bpm. Does the patient have a suspected source of infection? Yes: Productive cough/pneumonia. Care prior to arrival: None. 09:37 Method Of Arrival: Wheelchair ph Historical: - Allergies: 09:36 No Known Drug Allergies; ph - Home Meds: 09:36 Prednisone Oral [Active]; Suboxone [Active]; ph - PMHx: 09:36 Hepatitis; C; ITP; ph - PSHx: 09:36 Appendectomy; ph - Immunization history:: Adult Immunizations unknown. - Ebola Screening: : No symptoms or risks identified at this time. - Family history:: not pertinent. - Hospitalizations: : No recent hospitalization is reported. Screenin:36 Abuse screen: Denies threats or abuse. Denies injuries from another. Nutritional ph screening: No deficits noted. Tuberculosis screening: No symptoms or risk factors identified. Fall Risk None identified. Assessment: 09:34 Reassessment: Code Sepsis ER room 4. ss 09:39 General: Appears in no apparent distress. uncomfortable, slender, well groomed, ph Behavior is cooperative, appropriate for age, anxious, Reports chills for 1-2 days. Pain: Complains of pain in chest. Neuro: Level of Consciousness is awake, alert, obeys commands, Oriented to person, place, time, situation. Cardiovascular: Reports chest pain, fatigue, lightheadedness, shortness of breath, Denies nausea, vomiting, Rhythm is sinus rhythm. Respiratory: Reports shortness of breath at rest on exertion cough that is labored breathing Airway is patent Respiratory effort is labored, Respiratory pattern is tachypnea Breath sounds are coarse bilaterally. Breath sounds are diminished in left posterior upper lobe and left posterior lower lobe. GI: No signs and/or symptoms were reported involving the gastrointestinal system. Derm: Skin is intact, Skin is pink, warm \T\ dry. Musculoskeletal: Circulation, motion, and sensation intact. Range of motion: intact in all extremities. 10:41 Reassessment: Patient appears in no apparent distress at this time. Patient and/or ph family updated on plan of care and expected duration. Pain level reassessed. Pt resting comfortably, respirations decreased to 20 down from 28, Spo2 maintained at > 95% on 2 L NC. 12:04 Reassessment: Patient appears in no apparent distress at this time. Patient and/or ph family updated on plan of care and expected duration. Pain level reassessed. Patient is alert, oriented x 3, equal unlabored respirations, skin warm/dry/pink. Vital Signs: 09:35 BP 131 / 67; Pulse 103; Resp 28; Temp 98.5(O); Pulse Ox 87% on R/A; Weight 81.65 kg; ph Height 5 ft. 10 in. (177.80 cm); 10:40 BP 122 / 73; Pulse 104; Resp 23; Pulse Ox 96% on 2 lpm NC; ph 11:21 BP 117 / 77; Pulse 101; Resp 22; Pulse Ox 93% on 2 lpm NC; ph 12:06 BP 110 / 76; Pulse 97; Resp 20; Temp 98.5(O); Pulse Ox 95% on 2 lpm NC; ph 09:35 Body Mass Index 25.83 (81.65 kg, 177.80 cm) ph ED Course: 09:26 Patient arrived in ED. as 09:26 Julian Tracy MD is Private Physician. as 09:26 Salome Perez MD is Private Physician. as 09:29 Tres Deutsch MD is Attending Physician. rn 09:34 Triage completed. ss 09:38 Arm band placed on Patient placed in an exam room, on a stretcher, on oxygen, on ph shelter monitor, on pulse oximetry. 09:38 Patient has correct armband on for positive identification. Placed in gown. Bed in low ph position. Call light in reach. Side rails up X 1. monitoring and evaluation advisor on. Pulse ox on. NIBP on. Door closed. Noise minimized. Warm blanket given. Head of bed elevated. 09:40 Deborah Salinas RN is Primary Nurse. ph 09:45 Inserted saline lock: 20 gauge in right antecubital area, using aseptic technique. bp Blood collected. 09:47 EKG done, by electronic warfare technician. reviewed by Tres Deutsch MD. at1 10:02 Chest Single View XRAY In Process Unspecified. EDMS 10:48 Carolyn Morgan MD is Hospitalizing Provider. rn 11:49 Repeat lab(s) drawn. by or, sent to lab. 3 12:06 No provider procedures requiring assistance completed. Patient admitted, IV remains in ph place. Administered Medications: 09:53 Drug: SOLU-Medrol 125 mg Route: IVP; Site: right antecubital; ph 10:39 Follow up: Response: No adverse reaction ph 09:53 Drug: Xopenex (3) 1.25 mg Route: Inhalation; ph 10:40 Follow up: Response: No adverse reaction ph 09:56 Drug: NS 0.9% (30 ml/kg) 30 ml/kg Route: IV; Rate: bolus; Site: right antecubital; ph 12:07 Follow up: Response: No adverse reaction; IV Status: Completed infusion; IV Intake: ph 2500ml 10:20 Drug: Rocephin - (cefTRIAXone) 1 grams Route: IVPB; Infused Over: 30 mins; Site: right ph antecubital; 10:40 Follow up: Response: No adverse reaction; IV Status: Completed infusion ph 10:35 Drug: LevaQUIN 750 mg Volume: 150 ml; Route: IVPB; Infused Over: 90 mins; Site: right ph antecubital; 12:07 Follow up: Response: No adverse reaction; IV Status: Completed infusion ph Intake: 12:07 IV: 2500ml; Total: 2500ml. ph Outcome: 10:49 Decision to Hospitalize by Provider. rn 12:52 Patient left the ED. ph 12:52 Admitted to Med/surg accompanied by tech, via wheelchair, with oxygen, with chart, ph Report called to Carmela FROST 12:52 Condition: stable 12:52 Instructed on the need for admit. Signatures: Dispatcher [employer] Doretha Perez Roman, MD MD rn [facility] RN RN Carri Mccarty, [facility] EK Tat1 Deborah Salinas RN RN Juli Ferrari 3 Jeffrey Evans RN RN bp
[2019-01-15] MEDS ORDERED: ONDANSETRON 4 MG/2 ML VIAL IV PRN (11:26)
[2019-01-15] MEDS ORDERED: ACETAMINOPHEN 500 MG TAB PO PRN (11:26)
--- NOTE | 2019-01-15 11:26 | P.HP ---
Certification for Inpatient Patient admitted to: Inpatient With expected LOS: >2 Midnights Patient will require the following post-hospital care: None Practitioner: I am a practitioner with admitting privileges, knowledge of patient current condition, hospital course, and medical plan of care. Services: Services provided to patient in accordance with Admission requirements found in Title 42 Section 412.3 of the Code of Federal Regulations Patient History Date of Service: 01/15/19 Reason for admission: BIlateral pneumonia Allergies No Known Drug Allergies Allergy (Verified 12/24/18 10:46) Unknown No Known Allergies Allergy (Uncoded 12/24/18 10:46) Unknown Home Medications: predniSONE [Prednisone*] 70 mg PO DAILY 01/22/17 dexAMETHasone [Dexamethasone] 40 mg PO DAILY #20 tablet 12/26/18 - Past Medical/Surgical History Diabetic: No -: ITP -: HPV -: HEPATITIS C -: Rhinoplasty -: tonsillectomy -: adenoids removed -: appendectomy - Family History Father Medical History: Cancer Notes: lung cancer - Social History Alcohol use: No CD- Drugs: Yes Caffeine use: Yes Physical Examination - Studies Laboratory Data (last 24 hrs) 01/15/19 10:25: WBC 13.4 H, Hgb 14.8, Hct 43.9, Plt Count 62 L 01/15/19 09:49: Sodium 139, Potassium 4.3, BUN 15, Creatinine 1.24, Glucose 119 H Microbiology Data (last 24 hrs): 01/15/19 09:38 Nasopharnyx Influenza Type A Antigen Screen - Final 01/15/19 09:38 Nasopharnyx Influenza Type B Antigen Screen - Final Assessment & Plan - Advance Directives Does patient have a Living Will: No Does patient have a Durable POA for Healthcare: No
[2019-01-15] MEDS ORDERED: METHYLPREDNISOLONE 125 MG INJ IV SCH (12:00)
[2019-01-15 13:05] LABS: Anisocytosis 1+; Blood Morphology Comment NOTED (NOT SEEN); Platelet Estimate DECR; Platelets, Giant PRESENT; Urine White Blood Cell Casts OK
[2019-01-15] MEDS: NA CHLORIDE 0.9% 1,000 ML IV SCH ×2 (13:13→22:00)
[2019-01-15] MEDS ORDERED: BENZONATATE 100 MG CAP PO PRN (14:04)
[2019-01-15 14:05] VITALS: BMI 25.8
--- NOTE | 2019-01-15 14:14 | P.HP ---
Certification for Inpatient Patient admitted to: Inpatient With expected LOS: >2 Midnights Patient will require the following post-hospital care: None Practitioner: I am a practitioner with admitting privileges, knowledge of patient current condition, hospital course, and medical plan of care. Services: Services provided to patient in accordance with Admission requirements found in Title 42 Section 412.3 of the Code of Federal Regulations Patient History Date of Service: 01/15/19 Primary Care Provider: Dr. Buitrago; Hematology-Dr. Ramirez Reason for admission: Bilateral pneumonia History of Present Illness: 43-year-old male presented to the emergency room with cough, congestion and shortness of breath. Patient with underlying hepatitis-C, chronic ITP, and chronic pain. Over the last 3 days patient has been having increasing cough, congestion and shortness of breath. Shortness of breath was worse. His provided him albuterol without any significant change. Room-air saturations at home range around 84. Patient with fever, chills. In the ER patient was evaluated. White count slightly elevated. Platelet count 62. BMP reviewed. Pro calcitonin elevated. Chest x-ray showed bilateral pneumonia left greater than right. Patient admitted for further evaluation and treatment. When I saw the patient in the hospital room, patient was appropriate and alert. Patient appeared stable. at bedside. Patient did not look like in any respiratory distress. Allergies No Known Drug Allergies Allergy (Verified 12/24/18 10:46) Unknown No Known Allergies Allergy (Uncoded 12/24/18 10:46) Unknown Home medications list reviewed: Yes Home Medications: Buprenorphine HCl/Naloxone HCl [Buprenorp-Nalox 8-2 mg Sl Film] 1 film SL TID - Past Medical/Surgical History Has patient received pneumonia vaccine in the past: No Diabetic: No -: Chronic ITP -: Chronic herpes simplex virus -: Hepatitis-C -: Tobacco abuse -: Rhinoplasty -: Tonsillectomy with adenoidectomy -: Appendectomy Psychosocial/ Personal History: Patient is . - Family History Father -: Cancer (Lung cancer with mesothelioma) Notes: lung cancer Mother -: Heart disease - Social History Smoking Status: Heavy Tobacco smoker (>10 cigarettes/day) Counseled patient to stop smoking for: less than 10 minutes Smoking therapy provided: Yes Patient receptive to therapy: Yes Alcohol use: No CD- Drugs: No Caffeine use: Yes Place of Residence: Home Review of Systems General: Fever, Chills, As per HPI Eyes: Unremarkable ENT: Nose Congestion, As per HPI Respiratory: Cough, Shortness of Breath, SOB with Excertion, Wheezing, As per HPI Cardiovascular: Unremarkable Gastrointestinal: Unremarkable Genitourinary: Unremarkable Musculoskeletal: Unremarkable Integumentary: Unremarkable Neurological: Unremarkable Lymphatics: Unremarkable Physical Examination - Vital Signs Temperature: 98.5 F Blood Pressure: 110/76 Pulse: 97 Respirations: 20 - Physical Exam General: Alert, In no apparent distress, Oriented x3, Cooperative HEENT: Atraumatic, Normocephalic, PERRLA, Mucous membr. moist/pink Neck: Supple, No Thyromegaly Respiratory: Crackles/rales (To the bases bilateral), Expiratory wheezes (Mild bilateral) Cardiovascular: Normal pulses, Regular rate/rhythm Gastrointestinal: Normal bowel sounds, Soft and benign, Non-distended, No tenderness, No masses, No rebound, No guarding Musculoskeletal: No erythema, No tenderness, No warmth Integumentary: No tenderness/swelling, No erythema, No warmth, No cyanosis Neurological: Normal speech, Normal strength at 5/5 x4 extr, Normal tone, Normal affect - Studies Laboratory Data (last 24 hrs) 01/15/19 10:25: WBC 13.4 H, Hgb 14.8, Hct 43.9, Plt Count 62 L 01/15/19 09:49: Sodium 139, Potassium 4.3, BUN 15, Creatinine 1.24, Glucose 119 H Microbiology Data (last 24 hrs): 01/15/19 09:38 Nasopharnyx Influenza Type A Antigen Screen - Final 01/15/19 09:38 Nasopharnyx Influenza Type B Antigen Screen - Final Assessment and Plan - Plan Impression: Fever, chills, shortness of breath secondary to bilateral pneumonia and likely with underlying COPD Chronic ITP Chronic hepatitis-C Chronic pain Tobacco abuse Plan: Fever, chills, shortness of breath secondary to bilateral pneumonia and likely with underlying COPD: Patient has been admitted. Will continue with Rocephin and Zithromax. Will provide medication for cough and congestion. Will recheck chest x-ray tomorrow. Will continue to wean off oxygen. Maintain sats above 93 %. Will start COPD medication-Dulera. Patient will likely require COPD medication at discharge. Will consult pulmonology to further evaluate. Will monitor pro calcitonin. Blood, sputum cultures to be obtained. Continue IV fluids. Will monitor and adjust appropriately. Chronic ITP: Patient with history of chronic ITP. Case discussed with hematology. Patient on a prednisone for COPD. Will provide SCD for DVT prophylaxis. Monitor platelet count. If platelet count decreases below 20,000 will need to Re discuss with hematology. Chronic hepatitis-C: Overall stable. This is to be addressed as an outpatient by GI. Chronic pain: Patient is seen by pain management. Will continue with his medication. Tobacco abuse: Will provide nicotine patch. Patient is eager to quit smoking. Education provided. Discharge Plan: Home Plan to discharge in: 72 Hours - Advance Directives Does patient have a Living Will: No Does patient have a Durable POA for Healthcare: Yes - Code Status/Comfort Care Code Status Assessed: Yes (Patient is full code) Time Spent Managing Pts Care (In Minutes): 55
[2019-01-15] MEDS ORDERED: INFLUENZA VACCINE (for 3y+) 0.5 ML DOSE IMVAC ONE (15:00)
[2019-01-15] MEDS ORDERED: ALBUTEROL 2.5 MG/3 ML NEB SOL ONE (15:37)
[2019-01-15] MEDS ORDERED: IPRATROPIUM BROM 0.5MG/2.5ML ONE (15:38)
[2019-01-15] MEDS: ALBUTEROL 2.5 MG/3 ML NEB SOL NEB PRN ×2 (15:44→21:29)
[2019-01-15] MEDS: IPRATROPIUM BROM 0.5MG/2.5ML NEB PRN ×2 (15:44→21:29)
[2019-01-15] MEDS: BUPRENORPHINE HCL SL SCH (21:00)
[2019-01-15] MEDS: [UNRECOGNIZED DRUG - OTHER] SL SCH (21:00)
[2019-01-15] MEDS: NALOXONE HCL SL SCH (21:00)
[2019-01-15] MEDS: CEFTRIAXONE/SWI 1gm 1 GM/10 ML SYR IV SCH (21:02)
[2019-01-15] MEDS: ASCORBIC ACID 500 MG TABLET PO SCH (21:02)
[2019-01-15] MEDS: predniSONE 10 MG TAB PO SCH (21:02)
[2019-01-15] MEDS: GUAIFENESIN 600 MG SA TAB PO SCH (21:02)
[2019-01-15] MEDS: DULERA 100/5 (MOMETASONE/FORMOTEROL) INHALER IH SCH (22:10)
--- NOTE | 2019-01-15 22:56 | EKG ---
Test Date: 2019-01-15 Test Time: 09:39:46 Knitter Machine: [employer] MEASUREMENT RESULTS: Intervals: Rate: 96 MS: 144 QRSD: 84 QT: 426 QTc: 538 [place]: P: 66 MS: 144 QRS: 36 T: 33 INTERPRETIVE STATEMENTS: Normal sinus rhythm with sinus arrhythmia Right atrial enlargement Prolonged QT Abnormal ECG Compared to ECG 12/24/2018 22:44:33 Atrial abnormality now present Prolonged QT interval now present First degree AV block no longer present T-wave abnormality no longer present Electronically Signed On 01-15-19 22:55:27 FINANCIAL SERVICE REP by Fawad Coronel
[2019-01-16 05:45] LABS: Basophils % 0.2 % (0-1.3); Hematocrit 39.2 % (39.6-49.0); Lymphocytes % 5.6 % (15.3-44.8); MPV 12.6 fL (7.6-11.3); RBC Red Blood Cell Count 4.55 M/uL (4.33-5.43)
[2019-01-16 05:49] LABS: ALT/SGPT 17 U/L (12-78); AST/SGOT 24 U/L (15-37); Albumin 2.4 g/dL (3.4-5.0); Alkaline Phosphatase 83 U/L (45-117); BUN Blood Urea Nitrogen 11 mg/dL (7-18); Bicarbonate 28 mmol/L (21-32); Bilirubin Total 0.3 mg/dL (0.2-1.0); Glucose Level 128 mg/dL (74-106); HDL Cholesterol 55 mg/dL (40-60); LDL Cholesterol, Calculated 129 (<130); Magnesium 2.2 mg/dL (1.8-2.4); Phosphorus 3.7 mg/dL (2.5-4.9); Potassium 4.1 mmol/L (3.5-5.1); Protein, Total 6.2 g/dL (6.4-8.2); Sodium Level 138 mmol/L (136-145)
[2019-01-16] MEDS: IPRATROPIUM BROM 0.5MG/2.5ML NEB PRN (08:25)
[2019-01-16] MEDS: ALBUTEROL 2.5 MG/3 ML NEB SOL NEB PRN ×3 (08:25→20:18)
[2019-01-16] MEDS ORDERED: ENOXAPARIN 40 MG/0.4 ML SQ SCH (09:00)
[2019-01-16] MEDS: [UNRECOGNIZED DRUG - OTHER] SL SCH ×3 (09:00→20:50)
[2019-01-16] MEDS: NALOXONE HCL SL SCH ×3 (09:00→20:50)
[2019-01-16] MEDS: BUPRENORPHINE HCL SL SCH ×3 (09:00→20:50)
[2019-01-16] MEDS: CEFTRIAXONE/SWI 1gm 1 GM/10 ML SYR IV SCH ×2 (09:12→20:52)
[2019-01-16] MEDS: NICOTINE 21 MG/PAT TD SCH (09:12)
[2019-01-16] MEDS: ASCORBIC ACID 500 MG TABLET PO SCH ×2 (09:12→20:51)
[2019-01-16] MEDS: GUAIFENESIN 600 MG SA TAB PO SCH (09:13)
[2019-01-16] MEDS: predniSONE 10 MG TAB PO SCH ×2 (09:13→20:51)
[2019-01-16] MEDS: NA CHLORIDE 0.9% 1,000 ML IV SCH (09:13)
[2019-01-16] MEDS: AZITHROMYCIN IV 500 MG in NA CHLORIDE 0.9% 250 ML IVPB SCH (09:13)
[2019-01-16] MEDS: DULERA 100/5 (MOMETASONE/FORMOTEROL) INHALER IH SCH ×2 (09:14→20:50)
--- NOTE | 2019-01-16 09:16 | RAD REPORT ---
EXAM DESCRIPTION: RAD - Chest Pa And Lat (2 Views) - 01/16/2019 8:31 am CLINICAL HISTORY: follow up pneumonia Chest pain. COMPARISON: Chest Single View dated 01/15/2019; Chest Single View dated 12/24/2018; Chest Pa And Lat (2 Views) dated 01/22/2017; Chest Single View dated 01/21/2017 FINDINGS: Since 01/15/2019, there has been mild improvement in bilateral pulmonary opacities. The he art is normal in size. No displaced fractures. IMPRESSION: Mild improvement in lung aeration since yesterday's examination.
--- NOTE | 2019-01-16 11:19 | P.PN ---
Subjective Date of Service: 01/16/19 Primary Care Provider: Dr. Buitrgao; Hematology-Dr. Ramirez Chief Complaint: Bilateral pneumonia Subjective: No new changes (still c/o of cough , chest tightness , -still feel congested) Review of Systems Respiratory: Cough, Shortness of Breath, SOB with Excertion Cardiovascular: Orthopnea Physical Examination - Vital Signs Temperature: 97.2 F Blood Pressure: 124/77 Pulse: 66 Respirations: 22 Pulse Ox (%): 92 - Physical Exam General: Alert, In no apparent distress HEENT: Atraumatic, Normocephalic, PERRLA Neck: Supple, 2+ carotid pulse no bruit Respiratory: Crackles/rales (on left base with occ exp wheeze) Cardiovascular: No edema, Normal pulses, Regular rate/rhythm, Normal S1 S2 Gastrointestinal: Normal bowel sounds, No tenderness Musculoskeletal: No clubbing, No swelling Neurological: Normal gait, Normal speech, Normal strength at 5/5 x4 extr - Studies Laboratory Data (last 24 hrs) 01/15/19 10:25: WBC 13.4 H, Hgb 14.8, Hct 43.9, Plt Count 62 L 01/15/19 10:25: WBC 13.4 H, RBC 5.09, Hgb 14.8, Hct 43.9, MCV 86.4, MCH 29.2, MCHC 33.8, RDW 14.7, Plt Count 62 L, MPV 12.4 H, Neutrophils % 84.8 H, Lymphocytes % 9.9 L, Monocytes % 4.3, Eosinophils % 0.6, Basophils % 0.4, Absolute Neutrophils 11.3 H, Absolute Lymphocytes 1.3, Absolute Monocytes 0.6, Absolute Eosinophils 0.1, Absolute Basophils 0.1, Giant Platelets Present, Anisocytosis 1+, Morphology Comment Noted Microbiology Data (last 24 hrs): 01/15/19 10:35 Sputum Gram Stain - Final 01/15/19 09:38 Nasopharnyx Influenza Type A Antigen Screen - Final 01/15/19 09:38 Nasopharnyx Influenza Type B Antigen Screen - Final Medications List Reviewed: Yes Assessment & Plan - Problems (Diagnosis) (1) Bacterial lobar pneumonia Current Visit: Yes Status: Acute (2) COPD (chronic obstructive pulmonary disease) Current Visit: No Status: Acute Qualifiers: COPD type: COPD with acute exacerbation Qualified Code(s): J44.1 - Chronic obstructive pulmonary disease with (acute) exacerbation (3) Hepatitis C Current Visit: No Status: Chronic Qualifiers: Viral hepatitis chronicity: unspecified Hepatic coma status: without hepatic coma Qualified Code(s): B19.20 - Unspecified viral hepatitis C without hepatic coma (4) Tobacco abuse Onset Date: 12/27/16 Current Visit: No Status: Chronic Discharge Plan: Home Plan to discharge in: 72 Hours - Code Status/Comfort Care Code Status Assessed: Yes Code Status: Full Code Physician Review Additional Text: # b/l PNA - on abx - follow sputum c/s and vblood cx - no ghrowth till date - c/w 02 - slow recovery expected , may need home 02 when clinically stable for stable since still recurrent desatuartaion with activity # COPD with congestion -c/w nebs , add mucomyst neb and mucinex bid # Tob use -cessation advised , start nicotine patch # DVT prop - sc heparin full code Time Spent Managing Pts Care (In Minutes): 30
[2019-01-16] MEDS ORDERED: ACETYLCYST 20% 4 ML VIAL IH SCH (11:21)
--- NOTE | 2019-01-16 12:40 | P.CNS ---
Date of Consult: 01/16/19 Primary Care Provider: Dr. Buitrago; Hematology-Dr. Ramirez Chief Complaint: Bilateral pneumonia History of Present Illness: This 43 years of age a heavy 2 pack-a-day smoker has been complaining of worsening dyspnea for the past 4 days. He denies any prior history of cardiopulmonary problems no dyspnea on exertion or was also having some chills no cough no chest pain is doing somewhat better no prior history of chronic obstructive pulmonary disease Allergies No Known Drug Allergies Allergy (Verified 12/24/18 10:46) Unknown No Known Allergies Allergy (Uncoded 12/24/18 10:46) Unknown Home Medications: Buprenorphine HCl/Naloxone HCl [Buprenorp-Nalox 8-2 mg Sl Film] 1 film SL TID - Past Medical/Surgical History Diabetic: No -: Chronic ITP -: Chronic herpes simplex virus -: Hepatitis-C -: Tobacco abuse -: Rhinoplasty -: Tonsillectomy with adenoidectomy -: Appendectomy -: appendectomy Psychosocial/ Personal History: Patient is . - Family History Father Medical History: Cancer (Lung cancer with mesothelioma) Notes: lung cancer Mother Medical History: Heart disease - Social History Smoking Status: Current every day smoker Alcohol use: No CD- Drugs: No Caffeine use: Yes Place of Residence: Home Review of Systems Unremarkable General: Weakness Respiratory: Cough, Shortness of Breath Physical Examination Temp Pulse Resp BP Pulse Ox 97.2 F 66 22 H 124/77 92 01/16/19 11:19 01/16/19 11:19 01/16/19 11:19 01/16/19 11:19 01/16/19 11:19 General: Alert, Oriented x3 HEENT: Atraumatic Neck: Supple Respiratory: Expiratory wheezes Cardiovascular: No edema, Regular rate/rhythm, Normal S1 S2 Gastrointestinal: Normal bowel sounds, Soft and benign - Problems (1) Bacterial lobar pneumonia Current Visit: Yes Status: Acute Plan: Patient is 43 years of age admitted with pneumonia chest x-ray shows bilateral interstitial changes white count is elevated history of idiopathic thrombocytopenic purpura in addition to hepatitis-C is white count is mildly elevated vital signs stable check room air pulse ox Dc IV fluids give patient a small dose of Lasix patient is stable change to p.o. levofloxacin patient's vital signs are stable can be discharged home follow with me in 2 weeks is been console not to smoke recommend using Chantix and nicotine replacement therapy patient's cultures are all negative may have atypical pneumonia
[2019-01-16] MEDS ORDERED: FUROSEMIDE 20 MG/ 2ML VIAL IV ONE (13:00)
[2019-01-16] MEDS: IPRATROPIUM BROM 0.5MG/2.5ML NEB SCH ×2 (13:45→20:00)
--- NOTE | 2019-01-16 15:40 | ECHO ---
HEIGHT: 5 ft 10 in WEIGHT: 180 lb 0 oz DATE OF STUDY: 01/16/[address]: Kody Bowie MD 2-DIMENSIONAL: YES M.MODE: YES DOPPLER: YES COLOR FLOW: YES TDS: PORTABLE: DEFINITY: BUBBLE STUDY: DIAGNOSIS: RULE OUT CONGESTIVE HEART FAILURE CARDIAC HISTORY: CATHERIZATION: NO SURGERY: NO PROSTHETIC VALVE: NO PACEMAKER: NO MEASUREMENTS (cm) DIASTOLIC (NORMALS) SYSTOLIC (NORMALS) IVSd 0.9 (0.6-1.2) LA Diam 3.3 (1.9-4.0) LVEF 56% LVIDd 5.1 (3.5-5.7) LVIDs 3.6 (2.0-3.5) %FS 29% LVPWd 1.0 (0.6-1.2) Ao Diam 2.6 (2.0-3.7) 2 DIMENSIONAL ASSESSMENT: RIGHT ATRIUM: NORMAL LEFT ATRIUM: NORMAL RIGHT VENTRICLE: NORMAL LEFT VENTRICLE: NORMAL TRICUSPID VALVE: NORMAL MITRAL VALVE: NORMAL PULMONIC VALVE: NORMAL AORTIC VALVE: NORMAL PERICARDIAL EFFUSION: NONE AORTIC ROOT: NORMAL LEFT VENTRICULAR WALL MOTION: NORMAL DOPPLER/COLOR FLOW: NORMAL COMMENTS: NORMAL 2-DIMENSIONAL ECHOCARDIOGRAM WITH DOPPLER. TECHNOLOGIST: MAUREEN KRUEGER
[2019-01-16 17:57] LABS: Urine Appearance CLEAR; Urine Bilirubin NEGATIVE (NEG); Urine Blood NEGATIVE (NEG); Urine Color YELLOW; Urine Glucose NEGATIVE (NEG); Urine Protein NEGATIVE (NEG); Urine Specific Gravity <=1.005 (1.005-1.030); Urine Urobilinogen 0.2 mg/dL (0.2-1.0); Urine pH 5.5 (5.0-7.0)
[2019-01-16 18:08] LABS: Urine Bacteria <20 /HPF (NONE SEEN); Urine Culture Reflex Order NOT NEEDED; Urine RBC <5 /HPF (NONE SEEN)
[2019-01-16] MEDS ORDERED: GUAIFENESIN 600 MG SA TAB PO SCH (21:00)
[2019-01-17] MEDS: ALBUTEROL 2.5 MG/3 ML NEB SOL NEB PRN (01:30)
[2019-01-17] MEDS: IPRATROPIUM BROM 0.5MG/2.5ML NEB SCH ×4 (02:00→20:00)
[2019-01-17 06:07] LABS: Absolute Lymphocytes (CBC) 1.5 K/uL (0.7-4.9); Basophils % 0.2 % (0-1.3); Hematocrit 40.5 % (39.6-49.0); Lymphocytes % 14.2 % (15.3-44.8); MPV 11.9 fL (7.6-11.3); RBC Red Blood Cell Count 4.68 M/uL (4.33-5.43)
[2019-01-17 06:21] LABS: ALT/SGPT 19 U/L (12-78); AST/SGOT 21 U/L (15-37); Albumin 2.7 g/dL (3.4-5.0); Alkaline Phosphatase 85 U/L (45-117); BUN Blood Urea Nitrogen 13 mg/dL (7-18); Bicarbonate 33 mmol/L (21-32); Bilirubin Total 0.4 mg/dL (0.2-1.0); Glucose Level 110 mg/dL (74-106); Potassium 5.2 mmol/L (3.5-5.1); Protein, Total 6.8 g/dL (6.4-8.2); Sodium Level 138 mmol/L (136-145)
[2019-01-17] MEDS: AZITHROMYCIN IV 500 MG in NA CHLORIDE 0.9% 250 ML IVPB SCH (08:00)
[2019-01-17] MEDS: [UNRECOGNIZED DRUG - OTHER] SL SCH ×3 (08:13→21:00)
[2019-01-17] MEDS: BUPRENORPHINE HCL SL SCH ×3 (08:13→21:00)
[2019-01-17] MEDS: ASCORBIC ACID 500 MG TABLET PO SCH ×2 (08:13→20:31)
[2019-01-17] MEDS: predniSONE 10 MG TAB PO SCH ×2 (08:13→20:30)
[2019-01-17] MEDS: NALOXONE HCL SL SCH ×3 (08:13→21:00)
[2019-01-17] MEDS: CEFTRIAXONE/SWI 1gm 1 GM/10 ML SYR IV SCH (08:13)
[2019-01-17] MEDS: DULERA 100/5 (MOMETASONE/FORMOTEROL) INHALER IH SCH ×2 (08:14→21:00)
[2019-01-17] MEDS: NICOTINE 21 MG/PAT TD SCH (08:14)
--- NOTE | 2019-01-17 11:00 | P.PN ---
Subjective Date of Service: 01/28/19 Primary Care Provider: Dr. Buitrago; Hematology-Dr. Ramirez Chief Complaint: Bilateral pneumonia Subjective: Improving (Patient is doing much better still has some coughing spells) Review of Systems Unremarkable Physical Examination - Vital Signs Temperature: 97.8 F Blood Pressure: 107/70 Pulse: 60 Respirations: 20 Pulse Ox (%): 95 - Physical Exam General: Alert, In no apparent distress, Oriented x3 Respiratory: Clear to auscultation bilaterally Cardiovascular: No edema, Regular rate/rhythm - Studies Microbiology Data (last 24 hrs): 01/15/19 10:35 Sputum Gram Stain - Final Medications List Reviewed: Yes Assessment And Plan - Current Problems (Diagnosis) (1) Bacterial lobar pneumonia Status: Acute Plan: Patient admitted with bilateral pneumonia heavy smoker clinically is improving white count is normal afebrile vital signs all stable patient is hypoxic 87% on room air increase prednisone change to p.o. levofloxacin Dc IV Zithromax and Rocephin patient has Haemophilus isolated in the sputum should be sensitive to levofloxacin white count is now normal possible discharge tomorrow to follow up with me in 2 weeks normal renal function
[2019-01-17] MEDS ORDERED: predniSONE 10 MG TAB PO ONE (12:00)
[2019-01-17] MEDS: levoFLOXacin 500 MG TAB PO SCH (12:03)
--- NOTE | 2019-01-17 12:20 | P.PN ---
Subjective Date of Service: 01/17/19 Primary Care Provider: Dr. Buitrago; Hematology-Dr. Ramirez Chief Complaint: Bilateral pneumonia Subjective: No new changes, No C/O voiced (feel muchy better , coughing spells improved now), Doing well Review of Systems 10-point ROS is otherwise unremarkable Physical Examination - Vital Signs Temperature: 97.8 F Blood Pressure: 107/70 Pulse: 60 Respirations: 20 Pulse Ox (%): 95 - Physical Exam General: Alert, In no apparent distress, Oriented x3 HEENT: Atraumatic, Normocephalic, PERRLA Neck: Supple, 2+ carotid pulse no bruit Respiratory: Clear to auscultation bilaterally, Normal air movement Cardiovascular: No edema, Normal pulses, Regular rate/rhythm, Normal S1 S2 Neurological: Normal gait, Normal speech, Normal strength at 5/5 x4 extr - Studies Laboratory Last Values WBC 10.8 K/uL (4.3-10.9) D 01/17/19 05:45 RBC 4.68 M/uL (4.33-5.43) 01/17/19 05:45 Hgb 13.8 g/dL (13.6-17.9) 01/17/19 05:45 Hct 40.5 % (39.6-49.0) 01/17/19 05:45 MCV 86.5 fL (80-100) 01/17/19 05:45 MCH 29.5 pg (27.0-35.0) 01/17/19 05:45 MCHC 34.1 g/dL (32.0-36.0) 01/17/19 05:45 RDW 14.4 % (12.1-15.2) 01/17/19 05:45 Plt Count 80 K/uL (152-406) L D 01/17/19 05:45 MPV 11.9 fL (7.6-11.3) H 01/17/19 05:45 Neutrophils % 80.3 % (41.7-73.7) H 01/17/19 05:45 Lymphocytes % 14.2 % (15.3-44.8) L 01/17/19 05:45 Monocytes % 5.0 % (3.3-12.3) 01/17/19 05:45 Eosinophils % 0.3 % (0-4.4) 01/17/19 05:45 Basophils % 0.2 % (0-1.3) 01/17/19 05:45 Absolute Neutrophils 8.7 K/uL (1.8-8.0) H 01/17/19 05:45 Absolute Lymphocytes 1.5 K/uL (0.7-4.9) 01/17/19 05:45 Absolute Monocytes 0.5 K/uL (0.1-1.3) 01/17/19 05:45 Absolute Eosinophils 0.0 K/uL (0-0.5) 01/17/19 05:45 Absolute Basophils 0.0 K/uL (0-0.5) 01/17/19 05:45 Giant Platelets Present 01/15/19 10:25 Anisocytosis 1+ 01/15/19 10:25 Morphology Comment Noted (NOT SEEN) 01/15/19 10:25 Sodium 138 mmol/L (136-145) 01/17/19 05:44 Potassium 5.2 mmol/L (3.5-5.1) H 01/17/19 05:44 Chloride 104 mmol/L (98-107) 01/17/19 05:44 Carbon Dioxide 33 mmol/L (21-32) H 01/17/19 05:44 BUN 13 mg/dL (7-18) 01/17/19 05:44 Creatinine 0.74 mg/dL (0.55-1.3) 01/17/19 05:44 Estimated GFR > 90 mL/min (=/>90) 01/17/19 05:44 Glucose 110 mg/dL (74-106) H 01/17/19 05:44 Lactic Acid 1.1 mmol/L (0.4-2.0) 01/16/19 05:18 Calcium 9.0 mg/dL (8.5-10.1) 01/17/19 05:44 Phosphorus 3.7 mg/dL (2.5-4.9) 01/16/19 05:18 Magnesium 2.2 mg/dL (1.8-2.4) 01/16/19 05:18 Total Bilirubin 0.4 mg/dL (0.2-1.0) 01/17/19 05:44 AST 21 U/L (15-37) 01/17/19 05:44 ALT 19 U/L (12-78) 01/17/19 05:44 Alkaline Phosphatase 85 U/L (45-117) 01/17/19 05:44 Creatine Kinase 56 U/L (39-308) 01/15/19 09:49 Rapid Troponin I < 0.02 ng/mL (0.0-0.045) 01/15/19 09:49 Serum Total Protein 6.8 g/dL (6.4-8.2) 01/17/19 05:44 Albumin 2.7 g/dL (3.4-5.0) L 01/17/19 05:44 Globulin 4.1 g/dL (2.3-3.5) H 01/17/19 05:44 Albumin/Globulin Ratio 0.7 (1.1-1.8) L 01/17/19 05:44 Triglycerides 68 mg/dL (<150) 01/16/19 05:18 Cholesterol 198 mg/dL (<200) 01/16/19 05:18 LDL Cholesterol, Calc 129 (<130) 01/16/19 05:18 HDL Cholesterol 55 mg/dL (40-60) 01/16/19 05:18 Cholesterol/HDL Ratio 3.60 01/16/19 05:18 Procalcitonin 0.96 ng/mL (<0.50) H 01/15/19 09:49 Urine Color Yellow 01/16/19 17:45 Urine Appearance Clear 01/16/19 17:45 Urine pH 5.5 (5.0-7.0) 01/16/19 17:45 Ur Specific [place] <=1.005 (1.005-1.030) 01/16/19 17:45 Urine Ketones Negative (NEG) 01/16/19 17:45 Urine Blood Negative (NEG) 01/16/19 17:45 Urine Nitrite Negative (NEG) 01/16/19 17:45 Urine Bilirubin Negative (NEG) 01/16/19 17:45 Urine Urobilinogen 0.2 mg/dL (0.2-1.0) 01/16/19 17:45 Ur Leukocyte Esterase Negative (NEG) 01/16/19 17:45 Urine RBC <5 /HPF (NONE SEEN) 01/16/19 17:45 Urine WBC None seen /HPF (<5) 01/16/19 17:45 Ur Squamous Epith Cells <5 /HPF (NONE SEEN) 01/16/19 17:45 Urine Bacteria <20 /HPF (NONE SEEN) 01/16/19 17:45 Urine Culture Reflexed Not needed 01/16/19 17:45 Urine Glucose Negative (NEG) 01/16/19 17:45 Urine Total Protein Negative (NEG) 01/16/19 17:45 Microbiology Data (last 24 hrs): 01/15/19 10:35 Sputum Gram Stain - Final Medications List Reviewed: Yes Assessment & Plan - Problems (Diagnosis) (1) Bacterial lobar pneumonia Current Visit: Yes Status: Acute (2) COPD (chronic obstructive pulmonary disease) Current Visit: No Status: Acute Qualifiers: COPD type: COPD with acute exacerbation Qualified Code(s): J44.1 - Chronic obstructive pulmonary disease with (acute) exacerbation (3) Hepatitis C Current Visit: No Status: Chronic Qualifiers: Viral hepatitis chronicity: unspecified Hepatic coma status: without hepatic coma Qualified Code(s): B19.20 - Unspecified viral hepatitis C without hepatic coma (4) Tobacco abuse Onset Date: 12/27/16 Current Visit: No Status: Chronic Discharge Plan: Home Plan to discharge in: 24 Hours - Code Status/Comfort Care Code Status Assessed: Yes Code Status: Full Code Physician Review Additional Text: # b/l PNA - with hemophilus species on sputum culture -follow follow sensitivity - improving 02 need , now tapering down to 1.5 L NC 02 now though still low sat with ambulation -will continue to wean off as tolerated # COPD with congestion -improved -c/w duonebs/mucomyst neb and mucinex bid # Tob use -c/w nicotine patch # DVT prop - sc heparin full code possible dc in am if able to wean off 02 to room air
[2019-01-18] MEDS: IPRATROPIUM BROM 0.5MG/2.5ML NEB SCH ×3 (02:20→13:40)
[2019-01-18 04:15] LABS: Absolute Lymphocytes (CBC) 1.4 K/uL (0.7-4.9); Basophils % 0.3 % (0-1.3); Hematocrit 44.2 % (39.6-49.0); Lymphocytes % 12.8 % (15.3-44.8); MPV 11.5 fL (7.6-11.3); RBC Red Blood Cell Count 5.04 M/uL (4.33-5.43)
[2019-01-18] MEDS: ASCORBIC ACID 500 MG TABLET PO SCH (07:40)
[2019-01-18] MEDS: predniSONE 10 MG TAB PO SCH (07:40)
[2019-01-18] MEDS: levoFLOXacin 500 MG TAB PO SCH (07:40)
[2019-01-18] MEDS: NICOTINE 21 MG/PAT TD SCH (07:41)
[2019-01-18] MEDS: NALOXONE HCL SL SCH (07:42)
[2019-01-18] MEDS: [UNRECOGNIZED DRUG - OTHER] SL SCH (07:42)
[2019-01-18] MEDS: BUPRENORPHINE HCL SL SCH (07:42)
[2019-01-18 08:27] VITALS: O2SAT 94
[2019-01-18] MEDS: DULERA 100/5 (MOMETASONE/FORMOTEROL) INHALER IH SCH (09:20)
--- NOTE | 2019-01-18 11:20 | P.DS ---
Admission Date: 01/15/19 Discharge Date: 01/18/19 Primary Care Provider: Dr. Buitrago; Hematology-Dr. Ramirez Disposition: DC HOME/HOME HEALTH CARE Discharge Condition: FAIR Reason for Admission: Bilateral pneumonia Consultations: Pulmonary - Problems (1) Bacterial lobar pneumonia Current Visit: Yes Status: Acute (2) COPD (chronic obstructive pulmonary disease) Current Visit: No Status: Acute Qualifiers: COPD type: COPD with acute exacerbation Qualified Code(s): J44.1 - Chronic obstructive pulmonary disease with (acute) exacerbation (3) Hepatitis C Current Visit: No Status: Chronic Qualifiers: Viral hepatitis chronicity: unspecified Hepatic coma status: without hepatic coma Qualified Code(s): B19.20 - Unspecified viral hepatitis C without hepatic coma (4) Tobacco abuse Onset Date: 12/27/16 Current Visit: No Status: Chronic Brief History of Present Illness: istory of Present Illness: 43-year-old male presented to the emergency room with cough, congestion and shortness of breath. Patient with underlying hepatitis-C, chronic ITP, and chronic pain. Over the last 3 days patient has been having increasing cough, congestion and shortness of breath. Shortness of breath was worse. His provided him albuterol without any significant change. Room-air saturations at home range around 84. Patient with fever, chills. In the ER patient was evaluated. White count slightly elevated. Platelet count 62. BMP reviewed. Pro calcitonin elevated. Chest x-ray showed bilateral pneumonia left greater than right. Patient admitted for further evaluation and treatment. When I saw the patient in the hospital room, patient was appropriate and alert. Patient appeared stable. at bedside. Patient did not look like in any respiratory distress. Hospital Course: Patient was noted with bilateral pneumonia likely CAP . HE WAS STARTED ON ANTIBIOTICS AND CX GROW POSSIBLE HEMOPHiLUS SP . He was evaluated by pulmonary also . He have some component of COPD with acute flare . His hospital course included slow to wean off oxygen and was felt that his COPD was stable enough to warrant chronic oxygen use for now . Case mgt has arranged for home 02 use and he will follow with pulmonary in 1-2 weeks . Cessation of tobacco use counselling was done and nicotine patches given Vital Signs/Physical Exam: Temp Pulse Resp BP Pulse Ox 96.9 F 65 16 124/74 100 01/18/19 08:00 01/18/19 08:00 01/18/19 08:00 01/18/19 08:00 01/18/19 08:00 General: Alert, In no apparent distress, Oriented x3 HEENT: Atraumatic, Normocephalic Neck: Supple, 2+ carotid pulse no bruit Respiratory: Clear to auscultation bilaterally, Expiratory wheezes (with coughing only ) Cardiovascular: No edema, Normal pulses, Regular rate/rhythm Gastrointestinal: Normal bowel sounds, Soft and benign, No tenderness Musculoskeletal: No clubbing, No swelling Neurological: Normal speech, Sensation intact, Cranial nerves 3-12 intact Laboratory Data at Discharge: WBC 11.1 K/uL (4.3-10.9) H 01/18/19 03:44 Hgb 14.7 g/dL (13.6-17.9) 01/18/19 03:44 Hct 44.2 % (39.6-49.0) 01/18/19 03:44 Plt Count 114 K/uL (152-406) L D 01/18/19 03:44 Sodium 138 mmol/L (136-145) 01/17/19 05:44 Potassium 5.2 mmol/L (3.5-5.1) H 01/17/19 05:44 BUN 13 mg/dL (7-18) 01/17/19 05:44 Creatinine 0.74 mg/dL (0.55-1.3) 01/17/19 05:44 Glucose 110 mg/dL (74-106) H 01/17/19 05:44 Phosphorus 3.7 mg/dL (2.5-4.9) 01/16/19 05:18 Magnesium 2.2 mg/dL (1.8-2.4) 01/16/19 05:18 Total Bilirubin 0.4 mg/dL (0.2-1.0) 01/17/19 05:44 AST 21 U/L (15-37) 01/17/19 05:44 ALT 19 U/L (12-78) 01/17/19 05:44 Alkaline Phosphatase 85 U/L (45-117) 01/17/19 05:44 Triglycerides 68 mg/dL (<150) 01/16/19 05:18 Cholesterol 198 mg/dL (<200) 01/16/19 05:18 HDL Cholesterol 55 mg/dL (40-60) 01/16/19 05:18 Cholesterol/HDL Ratio 3.60 01/16/19 05:18 Home Medications: Buprenorphine HCl/Naloxone HCl [Buprenorp-Nalox 8-2 mg Sl Film] 1 film SL TID Albuterol Neb [Proventil 0.083% Neb Soln] 2.5 mg NEB [id number] PRN #20 amp Benzonatate [Tessalon Perle*] 100 mg PO TID PRN #30 cap 01/18/19 Ipratropium Neb [Atrovent*] 0.5 mg NEB [id number] #20 amp 01/18/19 Mometasone/Formoterol [Dulera 100 Mcg/5 Mcg Inhaler] 2 puff IH BID #1 inhaler Nicotine [Nicoderm*] 21 mg TD DAILY #10 patch.td24 01/18/19 levoFLOXacin [Levaquin*] 500 mg PO DAILY #7 tab 01/18/19 predniSONE [Deltasone*] 1 mg PO DAILY #26 tab 01/18/19 New Medications: Albuterol Neb [Proventil 0.083% Neb Soln] 2.5 mg NEB [id number] PRN #20 amp PRN Reason: Wheezing Benzonatate [Tessalon Perle*] 100 mg PO TID PRN #30 cap PRN Reason: Cough Ipratropium Neb [Atrovent*] 0.5 mg NEB [id number] #20 amp levoFLOXacin [Levaquin*] 500 mg PO DAILY #7 tab Mometasone/Formoterol [Dulera 100 Mcg/5 Mcg Inhaler] 2 puff IH BID #1 inhaler Nicotine [Nicoderm*] 21 mg TD DAILY #10 patch.td24 predniSONE [Deltasone*] 1 mg PO DAILY #26 tab Patient Discharge Instructions: - wear oxygen at all times for now Diet: Regular Activity: Ad glenn Followup: Kody Bowie MD [ACTIVE - CAN ADMIT] - 1-2 Weeks Physician Review: Patient Assessed, Agree with Above Assessment and Plan Time spent managing pt's care (in minutes): 35
[2019-01-28 21:12] VITALS: BP 107/70; TEMP 97.8
== END 2019-01-18 14:00 | disposition home or self-care (01) | DRG 194 ==
LOC: ER 09:24 → ERHOLD 11:27 → 4TH 12:21
PROVIDERS: ADMIT Hospitalist; ATTEND Hospitalist
DX: J14 Pneumonia due to Hemophilus influenzae (principal); J44.0 Chronic obstructive pulmonary disease with (acute) lower respiratory infection; J44.1 Chronic obstructive pulmonary disease with (acute) exacerbation; B18.2 Chronic viral hepatitis C; F17.210 Nicotine dependence, cigarettes, uncomplicated
CPT/HCPCS: 36415; 71045; 71046; 80048; 80053; 80061; 81001; 82550; 83605; 83735; 84100; 84145; 84484; 85025; 87040; 87070; 87184; 87205; 87804; 93005; 93306; 94640; 94760; 96365; 96367; 96375; 99285; J0456; J0696; J1940; J2930; J7030; J7512; J7606